=== PATIENT | male | born 1985 | race Caucasian/White ===

== ENCOUNTER 2016-09-12 22:53 | Emergency (ER) | payer OTHER ==
[~2016-09-12] VITALS: Ht 193 cm; Wt 102.3 kg
[~2016-09-12 22:53] MED LIST: DIAZ-165 PO; METH4PAK PO; OXYC1TAB3 PO
[2016-09-12 23:05] VITALS: TEMP 37; Ht 193 cm; Wt 102.3 kg
[2016-09-12] MEDS ORDERED: KETOROLAC TROMETHAMINE 30 MG/ML VIAL IV STA (23:26)
[2016-09-12] MEDS ORDERED: METHYLPREDNISOLONE 125 MG VIAL IV STA (23:26)
[2016-09-12] MEDS ORDERED: SODIUM CHLORIDE 0.9% 1000ML 1,000 ML IV ONE (23:30)
[2016-09-12] MEDS ORDERED: MoRPHine SULFATE 4 MG/ML 1 ML CARP\\VIAL IV ONE (23:30)
[2016-09-12] MEDS ORDERED: NAPR1TAB9 PO (23:33)
[2016-09-12 23:48] LABS: BASO % 0.1 %; BASO ABS # 0.01 K/uL (0-0.2); COMPLETE YES; EOS % 2.4 %; HEMATOCRIT 42.7 % (42-52); IG% 0.1 %; LYMPH % 35.8 %; MEAN CELL VOLUME 86.3 fL (80-100); MEAN CORPUSCULAR HEMOGLOBIN 31.1 pg (25-34); MEAN CORPUSCULAR HGB CONC 36.1 g/dl (32-36); MEAN PLATELET VOLUME 10.1 fL (7.4-10.4); MONO % 8.9 %; NEUT % 52.7 %; PLATELET COUNT 192 K/uL (130-400); RED BLOOD COUNT 4.95 M/uL (4.7-6.1); WHITE BLOOD COUNT 7.54 K/uL (4.8-10.8)
[2016-09-13 00:06] LABS: BLOOD UREA NITROGEN 16 mg/dl (7-18); BUN/CREATININE RATIO 14.1 (10-20); C-REACTIVE PROTEIN < 0.29 mg/dl (0-0.29); CALCIUM 9.1 mg/dl (8.5-10.1); CARBON DIOXIDE 26 mmol/L (21-32); CHLORIDE 108 mmol/L (98-107); GLUCOSE 103 mg/dl (70-99); POTASSIUM 3.4 mmol/L (3.5-5.1); SODIUM 146 mmol/L (136-145)
[2016-09-13 00:49] VITALS: BP 145/94; PULSE 76; O2SAT 96
[2016-09-13] MEDS ORDERED: HYDROmorphone INJ 1 MG/ML SYR IV STA (01:08)
[2016-09-13] MEDS ORDERED: OXYC1TAB3 PO (01:58)
[2016-09-13] MEDS ORDERED: CYCL10TA6 PO (01:58)
[2016-09-13] MEDS ORDERED: PRED50TA PO (01:58)
--- NOTE | 2016-09-13 06:38 | DIAGNOSTIC IMAGING REPORT ---
CT LUMBAR SPINE WITHOUT CT DOSE: 745.81 mGy.cm CLINICAL HISTORY: Low back pain TECHNIQUE: Axial images of the lumbar spine were obtained without IV contrast. Sagittal and coronal reconstructions were viewed. COMPARISON STUDY: Lumbar spine radiographs July 19, 2015. FINDINGS: For purposes of numbering on this exam, the L5-S1 disc space is assigned to axial image 322 of 393. Alignment of the lumbar spine is anatomic. Vertebral body heights are maintained. No acute fracture or suspicious lesion is noted. There is a Schmorl's node along the superior endplate of L5. Paravertebral soft tissues are unremarkable. The central canal and neural foramen are suboptimally assessed by CT. There is disc space narrowing with a disc bulge and moderate to large central disc protrusion at L4-L5 that measures 1.6 cm in craniocaudal extent. This results in moderate to severe central canal stenosis. There is mild disc bulge the L5-S1 level. There is moderate right neural foraminal narrowing at this level. IMPRESSION: 1. No acute lumbar spine fracture or subluxation. 2. Disc bulge with superimposed moderate to large central disc protrusion at L4-L5 that results in moderate to severe narrowing of the central canal. The central canal and neural foramen are suboptimally assessed by CT. 3. Suspected moderate right neural foraminal stenosis at L5-S1. Electronically signed by: Yefri Baca M.D. 09/13/2016 6:36 AM
--- NOTE | 2016-09-14 00:22 | EMERGENCY ROOM VISIT NOTE ---
History First contact with patient: 23:11 Chief Complaint: BACK PAIN Stated Complaint: SEVERE LOWER BACK PAIN, SLEEPLESSNESS History of Present Illness The patient is a 31 year old male who presents to the Emergency Room with complaints of severe and ongoing low back pain off and on for the past few years. The patient states that he exacerbated his back pain a week or 2 ago. He states that he does not have distinct injury or trauma. He was initially seen at this facility, where he was given pain medication and steroids. This medication did improve his symptoms initially, however his symptoms are now much worse than they were before. The patient has pain that radiates into his bilateral lower legs. No saddle paresthesias. No difficulty using the bathroom. The patient has not had fever or previous back surgery. He rates his discomfort a 9/10. Review of Systems More than 10 systems were reviewed and otherwise negative with the exception of history of present illness. Past Medical/Surgical History Medical Problems: (1) Allergy to cats (2) Back pain, lumbosacral Family History No pertinent family history Social History Smoking Status: Current Every Day Smoker Marital Status: in relationship Housing Status: lives with significant other Occupation Status: disabled Current/Historical Medications Scheduled Cyclobenzaprine Hcl (Flexeril), 10 MG PO TID Oxycodone Immediate Rel Tab (Roxicodone Ir), 1-2 TAB PO Q6 Prednisone (Prednisone), 50 MG PO DAILY Scheduled PRN Diazepam (Valium), 5-10 MG PO Q6H PRN for Muscle Spasms Naproxen (Aleve), 220 MG PO DIRECTED PRN for Pain Oxycodone Immediate Rel Tab (Roxicodone Ir), 1-2 TAB PO Q4H PRN for Severe Pain Allergies Coded Allergies: Cat Dander (Verified Allergy, Severe, SEVERE CONGESTION AND EYE SWELLING, 09/12/16) Physical Exam Vital Signs Date Time Temp Pulse Resp B/P Pulse Ox O2 Delivery O2 Flow Rate FiO2 09/13/16 00:49 76 20 145/94 96 Room Air 09/12/16 23:05 37.0 62 18 139/91 98 Room Air Pain Rating (0-10): 8.0 Physical Exam VITALS: Vitals are noted on the nurse's note and reviewed by myself. Vital signs stable. GENERAL: Well-developed, well-nourished, white male, who is in no acute distress and resting comfortably. Patient is cooperative with the examination. HEAD: Normocephalic atraumatic. HEART: Regular rate and rhythm without murmurs gallops or rubs. LUNGS: Clear to auscultation bilaterally without wheezes, rales or rhonchi. No retractions or accessory muscle use. ABDOMEN: Positive normal bowel sounds x 4. Soft, nontender, without masses or organomegaly. No guarding or rebound tenderness. MUSCULOSKELETAL: No muscle atrophy, erythema, or edema noted. Positive tenderness throughout the lower lumbar spine. Positive bilateral SI joint tenderness. Positive straight leg raise bilateral. No saddle paresthesias. Neurovascular status is intact distally. NEURO: Patient was alert and oriented to person place and time. CN II through XII grossly intact. Deep tendon reflexes 2+ throughout. No focal neurological deficits SKIN: The skin was without rashes, erythema, edema, or bruising. Capillary reflex less than 2 seconds. Medical Decision & Procedures ER Provider Diagnostic Interpretation: CT LUMBAR SPINE WITHOUT CT DOSE: 745.81 mGy.cm CLINICAL HISTORY: Low back pain TECHNIQUE: Axial images of the lumbar spine were obtained without IV contrast. Sagittal and coronal reconstructions were viewed. COMPARISON STUDY: Lumbar spine radiographs July 19, 2015. FINDINGS: For purposes of numbering on this exam, the L5-S1 disc space is assigned to axial image 322 of 393. Alignment of the lumbar spine is anatomic. Vertebral body heights are maintained. No acute fracture or suspicious lesion is noted. There is a Schmorl's node along the superior endplate of L5. Paravertebral soft tissues are unremarkable. The central canal and neural foramen are suboptimally assessed by CT. There is disc space narrowing with a disc bulge and moderate to large central disc protrusion at L4-L5 that measures 1.6 cm in craniocaudal extent. This results in moderate to severe central canal stenosis. There is mild disc bulge the L5-S1 level. There is moderate right neural foraminal narrowing at this level. IMPRESSION: 1. No acute lumbar spine fracture or subluxation. 2. Disc bulge with superimposed moderate to large central disc protrusion at L4-L5 that results in moderate to severe narrowing of the central canal. The central canal and neural foramen are suboptimally assessed by CT. 3. Suspected moderate right neural foraminal stenosis at L5-S1. Laboratory Results 09/12/16 23:36 Red Blood Count 4.95, Mean Corpuscular Volume 86.3, Mean Corpuscular Hemoglobin 31.1, Mean Corpuscular Hemoglobin Concent 36.1, Mean Platelet Volume 10.1, Neutrophils (%) (Auto) 52.7, Lymphocytes (%) (Auto) 35.8, Monocytes (%) (Auto) 8.9, Eosinophils (%) (Auto) 2.4, Basophils (%) (Auto) 0.1, Neutrophils # (Auto) 3.97, Lymphocytes # (Auto) 2.70, Monocytes # (Auto) 0.67, Eosinophils # (Auto) 0.18, Basophils # (Auto) 0.01 09/12/16 23:36 Test 09/12/16 23:36 White Blood Count 7.54 K/uL (4.8-10.8) Red Blood Count 4.95 M/uL (4.7-6.1) Hemoglobin 15.4 g/dL (14.0-18.0) Hematocrit 42.7 % (42-52) Mean Corpuscular Volume 86.3 fL (80-100) Mean Corpuscular Hemoglobin 31.1 pg (25-34) Mean Corpuscular Hemoglobin Concent 36.1 g/dl (32-36) Platelet Count 192 K/uL (130-400) Mean Platelet Volume 10.1 fL (7.4-10.4) Neutrophils (%) (Auto) 52.7 % Lymphocytes (%) (Auto) 35.8 % Monocytes (%) (Auto) 8.9 % Eosinophils (%) (Auto) 2.4 % Basophils (%) (Auto) 0.1 % Neutrophils # (Auto) 3.97 K/uL (1.4-6.5) Lymphocytes # (Auto) 2.70 K/uL (1.2-3.4) Monocytes # (Auto) 0.67 K/uL (0.11-0.59) Eosinophils # (Auto) 0.18 K/uL (0-0.5) Basophils # (Auto) 0.01 K/uL (0-0.2) RDW Standard Deviation 40.6 fL (36.4-46.3) RDW Coefficient of Variation 12.7 % (11.5-14.5) Immature Granulocyte % (Auto) 0.1 % Immature Granulocyte # (Auto) 0.01 K/uL (0.00-0.02) Erythrocyte Sedimentation Rate 4 mm/hr (0-14) Anion Gap 12.0 mmol/L (3-11) Est Creatinine Clear Calc Drug Dose 118.3 ml/min Estimated GFR () 102.4 Estimated GFR (Non- 88.4 BUN/Creatinine Ratio 14.1 (10-20) Calcium Level 9.1 mg/dl (8.5-10.1) C-Reactive Protein < 0.29 mg/dl (0-0.29) Medications Administered Medications (Trade) Dose Ordered Sig/Tiffanie Route Start Time Stop Time Status Last Admin Dose Admin Sodium Chloride (Nss 1000ml) 1,000 ml @ 999 mls/hr Q1H1M ONCE IV 09/12/16 23:30 09/13/16 00:30 DC 09/12/16 23:47 999 MLS/HR Ketorolac Tromethamine (Toradol Inj) 30 mg NOW STAT IV 09/12/16 23:26 09/12/16 23:31 DC 09/12/16 23:46 30 MG Methylprednisolone Sodium Succinate (Solu-Medrol IV) 125 mg NOW STAT IV 09/12/16 23:26 09/12/16 23:31 DC 09/12/16 23:46 125 MG Morphine Sulfate (MoRPHine SULFATE INJ) 4 mg NOW ONCE IV 09/12/16 23:30 09/12/16 23:31 DC 09/12/16 23:47 4 MG Hydromorphone HCl (Dilaudid Inj) 1 mg NOW STAT IV 09/13/16 01:08 09/13/16 01:09 DC 09/13/16 01:15 1 MG ED Course Physical exam and history were performed. Nursing notes and EMR were reviewed. Patient appears to have low back pain chronically. His symptoms have been acutely exacerbated the past few weeks. He is without saddle paresthesias and I do not suspect cauda equina. Patient is previously at this facility and has not had imaging in about one year. IV access was established and labs were obtained. The patient was hydrated and medicated as above. I did elect to perform CT scan of his lumbar spine. The patient's blood work does not show a significantly elevated white blood cell count, anemia, bandemia, or gross electrolyte imbalance. Sedimentation rate and CRP are both negative. CT scan of the back does show multiple findings that likely are the cause of his symptoms. I discussed options of care with the patient, including consultation orthospine and admission to the hospital. The patient declined any further intervention as he felt significantly better after medication. I explained to the patient is symptoms would likely continue if not worsened without appropriate care. He voiced understanding of this, and again indicated that he wished to go home. I will give him a course of oxycodone, prednisone, and Flexeril. He will be given information to see orthospine. I highly recommend that he contact them first thing in the morning to arrange the appropriate follow-up. He was otherwise invited back to the ER with any new, worsening, or concerning symptoms. The chart was completed utilizing [employer] Speech Voice Recognition Software. Grammatical errors, random word insertions, pronoun errors, and incomplete sentences are an occasional consequence of this system due to software limitations, ambient noise, and hardware issues. Any formal questions or concerns about the content, text, or information contained within the body of this dictation should be directly addressed to the provider for clarification. . Medical Decision Differential diagnosis: Etiologies such as musculoskeletal, disc herniation, fracture, aortic disease, metastatic disease, cord compression, discitis, infection, renal colic, gastrointestinal, acute exacerbation of chronic back pain, sciatica, cauda equina, as well as others were entertained. Impression Primary Impression: Low back pain Additional Impression: Extrusion of intervertebral disc Departure Information Dispostion Home / Self-Care Condition FAIR Prescriptions Cyclobenzaprine Hcl (FLEXERIL) 10 Mg Tab 10 MG PO TID for 5 Days, #15 TAB Prov: Nitesh Talley PA-C 09/13/16 Prednisone (Prednisone) 50 Mg Tab 50 MG PO DAILY for 4 Days, #4 TAB Prov: Nitesh Talley PA-C 09/13/16 Oxycodone Immediate Rel Tab (ROXICODONE IR) 5 Mg Tab 1-2 TAB PO Q6, #24 TAB Prov: Nitesh Talley PA-C 09/13/16 Referrals Brooks Thapa, DO Forms HOME CARE DOCUMENTATION FORM, IMPORTANT VISIT INFORMATION Patient Instructions A Signature Page, My [facility] Additional Instructions You were seen and evaluated today on an emergency basis only. This is not a substitute for, or an effort to provide, complete comprehensive medical care. It is not possible to recognize and treat all injuries or illnesses in a single emergency department visit. For this reason it is recommended that you followup with Dr Thapa's office first thing in the morning to arrange appropriate follow-up. For baseline pain relief you may alternate ibuprofen and acetaminophen every 4 hours for pain control. Take 600 mg ibuprofen (Advil) and then 4 hours later take 1000 mg acetaminophen (Tylenol). Do not take more than 3000 mg acetaminophen in a single day. Oxycodone (OxyIR) 5mg: Take ONE or TWO pills every SIX hours for breakthrough pain. Avoid alcohol, operating machinery or dangerous equipment, working on ladders or roofs, DRIVING, or situations where being under the influence may be dangerous. It is recommended to use an [id number] stool softener such as Colace, 100mg twice daily while taking this medication to avoid constipation. Take prednisone as prescribed. Flexeril 1 tablet up to 3 times a day as needed for muscle spasms. No driving, working, or alcohol use with Flexeril. You are welcome to return to the emergency department anytime with new, worsening, or concerning symptoms.
[2016-09-18] MEDS ORDERED: OXYC1TAB3 PO ×2 (13:37→13:39)
[2016-09-27] MEDS ORDERED: ACET-1311 PO (09:06)
[2016-09-27] MEDS ORDERED: HYDR2TAB48 PO (09:06)
[2017-05-29] MEDS ORDERED: ZOLP10TA PO (08:40)
[2017-05-29] MEDS ORDERED: MIRT15TA2 PO (08:40)
[2017-05-29] MEDS ORDERED: HYDROXYZINE PO (08:40)
[2017-05-29] MEDS ORDERED: HYDR-5688 PO (08:40)
== END 2016-09-13 02:07 | disposition home or self-care (01) ==
LOC: C.EDB 22:54
DX: M54.5 Low back pain (principal); M51.26 Other intervertebral disc displacement, lumbar region; F17.200 Nicotine dependence, unspecified, uncomplicated

== ENCOUNTER → 2016-09-21 | Outpatient (CLI) | payer OTHER ==
[~2016-09-21] MED LIST changes: +ACET-1311 PO; -DIAZ-165 PO; +DIPH25CA65 PO; +DOXY25TA7 PO; +HYDR-5688 PO; +HYDR2TAB48 PO; +HYDROXYZINE PO; -METH4PAK PO; +MIRT15TA2 PO; +TRAZ50TA35 PO; +ZOLP10TA PO
--- NOTE | 2016-09-21 08:00 | DIAGNOSTIC IMAGING REPORT ---
BONY ORBITS 3 VIEWS CLINICAL HISTORY: MRI clearance. FINDINGS: 3 views of the bony orbits are obtained. No prior studies are available for comparison at the time of dictation. There is no radiodense/metallic foreign body seen in the regional bony orbits. The bony orbits are intact as visualized. The imaged paranasal sinuses appear clear. The mastoid air cells appear well-pneumatized. The visualized calvarium appears intact. IMPRESSION: There is no radiodense/metallic foreign body seen in the region of the bony orbits. Electronically signed by: Dimitri Dalton M.D. 09/21/2016 7:58 AM Dictated Date/Time: 09/21/2016 7:57 AM
--- NOTE | 2016-09-21 09:21 | DIAGNOSTIC IMAGING REPORT ---
MRI OF THE LUMBAR SPINE WITHOUT IV CONTRAST CLINICAL HISTORY: Disc herniation. Low back pain. COMPARISON STUDY: CT scan of lumbar spine dated 09/13/2016. TECHNIQUE: MRI of the lumbar spine is performed utilizing various T1 and T2-weighted sequences in the axial and sagittal planes. IV contrast was not administered for this examination. FINDINGS: Lumbar spine: Vertebral body height and alignment are maintained throughout the lumbar spine. A Schmorl's node is seen in the superior endplate of L5. Endplate edema is present at L4-L5. The spinous and transverse processes are intact as visualized. There is no evidence of spondylolysis. No destructive bony lesion is seen. Intervertebral discs: There is degenerative disc desiccation and loss of height at L4-L5 and L5-S1. The remaining discs are normal in height and signal intensity. Paraspinal cord: The visualized spinal cord is normal in morphology and signal intensity. The conus medullaris terminates at the level of L1. The nerve roots of the cauda equina are normal in morphology. These appear tethered at the L4-L5 level. L1-L2: Unremarkable. L2-L3: Unremarkable. L3-L4: Unremarkable. L4-L5: There is a large disc herniation with annular fissure, slightly eccentric to the right. This causes severe central canal stenosis at this level with a minimum AP diameter of 4.5 mm. This tethers the nerve roots of the cauda equina at this level and impinges on the transiting nerve roots. There is mild bilateral subarticular stenosis. The neural foramina are patent at this level. L5-S1: There is minimal disc bulge eccentric to the right with annular fissure. The central canal is patent. There is right-sided subarticular stenosis with possible impingement on the exiting right L5 nerve root. Minimal facet arthropathy at this level is of no consequence. Sacrum: The visualized sacrum is normal in morphology and signal intensity. Soft tissues: The paraspinous soft tissues are normal in appearance. The partially imaged retroperitoneal structures are grossly normal but incompletely assessed. IMPRESSION: 1. There is a large disc herniation at L4-L5. This causes severe central canal stenosis and tethers the cauda equina. 2. There is a tiny disc bulge at L5-S1 eccentric to the right. This may impinge on the exiting right L5 nerve root. See above discussion for detailed level by level analysis. 3. There is associated endplate edema at L4-L5. Dictated: 09/21/2016 8:54 AM Transcribed: 09/21/2016 9:20 AM DALE_Delio Electronically signed by: Dimitri Dalton M.D. 09/21/2016 9:37 AM Dictated Date/Time: 09/21/2016 8:54 AM
== END | disposition home or self-care (01) ==
LOC: C.MRI 07:26
PROVIDERS: ATTEND Orthopaedic Surgery Orthopaedic Surgery of the Spine
DX: M51.26 Other intervertebral disc displacement, lumbar region (principal)

== ENCOUNTER → 2016-09-26 | Outpatient (CLI) | payer OTHER ==
[2016-09-26 17:15] LABS: BASO % 0.2 %; BASO ABS # 0.02 K/uL (0-0.2); COMPLETE YES; HEMATOCRIT 42.3 % (42-52); IG% 0.2 %; LYMPH % 21.1 %; LYMPH ABS # 1.92 K/uL (1.2-3.4); MEAN CORPUSCULAR HEMOGLOBIN 30.9 pg (25-34); MEAN CORPUSCULAR HGB CONC 35.9 g/dl (32-36); MEAN PLATELET VOLUME 10.7 fL (7.4-10.4); MONO % 6.8 %; NEUT % 70.7 %; PLATELET COUNT 205 K/uL (130-400); RED BLOOD COUNT 4.92 M/uL (4.7-6.1)
== END | disposition home or self-care (01) ==
LOC: C.LABBC 14:03
PROVIDERS: ATTEND Orthopaedic Surgery Orthopaedic Surgery of the Spine
DX: Z01.818 Encounter for other preprocedural examination (principal)

== ENCOUNTER 2016-09-27 22:46 | Emergency (ER) | payer OTHER ==
[~2016-09-27] VITALS: Ht 193 cm; Wt 98.7 kg
[~2016-09-27 22:46] MED LIST changes: -DIPH25CA65 PO; -DOXY25TA7 PO; -HYDR-5688 PO; -HYDROXYZINE PO; -MIRT15TA2 PO; -TRAZ50TA35 PO; -ZOLP10TA PO
[2016-09-27 22:53] VITALS: TEMP 36.5; Ht 193 cm; Wt 98.7 kg
[2016-09-27] MEDS ORDERED: SODIUM CHLORIDE 0.9% 1000ML 2,000 ML IV STA (23:11)
[2016-09-27] MEDS ORDERED: ONDANSETRON INJ 2 MG/ML 2 ML VIAL IV STA (23:11)
[2016-09-27] MEDS ORDERED: MoRPHine SULFATE 10 MG/ML CARP/VIAL IV STA (23:17)
[2016-09-27 23:34] LABS: BASO % 0.2 %; BASO ABS # 0.02 K/uL (0-0.2); COMPLETE YES; EOS % 0.5 %; HEMATOCRIT 47.5 % (42-52); IG% 0.2 %; LYMPH % 14.7 %; MEAN CELL VOLUME 85.7 fL (80-100); MEAN CORPUSCULAR HEMOGLOBIN 31.2 pg (25-34); MEAN CORPUSCULAR HGB CONC 36.4 g/dl (32-36); MEAN PLATELET VOLUME 10.4 fL (7.4-10.4); MONO % 7.9 %; NEUT % 76.5 %; PLATELET COUNT 249 K/uL (130-400); RED BLOOD COUNT 5.54 M/uL (4.7-6.1); WHITE BLOOD COUNT 12.89 K/uL (4.8-10.8)
[2016-09-28] LABS: ALT/SGPT 45 U/L (12-78); AST/SGOT 20 U/L (15-37); BLOOD UREA NITROGEN 22 mg/dl (7-18); BUN/CREATININE RATIO 16.6 (10-20); CALCIUM 10.3 mg/dl (8.5-10.1); CARBON DIOXIDE 23 mmol/L (21-32); CHLORIDE 103 mmol/L (98-107); GLUCOSE 114 mg/dl (70-99); POTASSIUM 3.2 mmol/L (3.5-5.1); SODIUM 141 mmol/L (136-145)
[2016-09-28 00:05] LABS: ALKALINE PHOSPHATASE 79 U/L (45-117)
[2016-09-28] MEDS ORDERED: SODIUM CHLORIDE 0.9% 500ML 500 ML IV STA (00:19)
[2016-09-28 00:46] LABS: URINE APPEARANCE CLEAR (CLEAR); URINE BILIRUBIN NEG (NEG); URINE COLOR DK YELLOW; URINE NITRITE NEG (NEG); URINE PH 7.5 (4.5-7.5); URINE SPECIFIC GRAVITY 1.039 (1.000-1.030); UROBILINOGEN NEG (NEG); ZZUR CULT IF INDIC CLEAN CATCH NO
[2016-09-28 01:01] LABS: MANUAL MICROSCOPIC REQUIRED? NO; REVIEW REQ? NO; SULFASALICYLIC ACID NEG (NEG)
[2016-09-28] MEDS ORDERED: POTASSIUM CHLORIDE 10 MEQ TABCR PO STA (01:06)
[2016-09-28 01:08] VITALS: BP 128/76; PULSE 81; O2SAT 99
[2016-09-28] MEDS ORDERED: ONDANSETRON HOME PACK 4MG OD TAB PO ONE (01:15)
--- NOTE | 2016-09-28 01:42 | EMERGENCY ROOM VISIT NOTE ---
History Report prepared by Mindy: [place] Matt Under the Supervision of: Dr. Santos Sandy D.O. First contact with patient: 23:03 Chief Complaint: DEHYDRATION Stated Complaint: ANXIETY, DEHYDRATION, SWEATING, NAUSEA, Nursing Triage Summary: pt reports he is scheduled for surgery in the morning. reports vomiting since last night. Reports that he has been seen her 2x recently and had to get saline. c/o back pain History of Present Illness The patient is a 31 year old male who presents to the Emergency Room with complaints of constant dehydration beginning last night. The patient complains of anxiety, sweating, nausea, leg pain on the back side, and vomiting. He states that he has had back pain for the last year and slipped on ice 2 weeks ago and caught himself. He reports that this aggravated the pervious injury and he was seen here 2 days ago and had a CT scan done. The patient states that he had an appointment with orthopedics and had an MRI and was scheduled for surgery to have a disc removed tomorrow morning at 7am. He notes that he has anxiety and when he found out about his surgery he began to have an anxiety attack. Since last night the patient states that he has has his usual anxiety symptoms including shortness of breath, sweating, and heart racing. He also notes that he has not been able to keep any food or water down and feels like he is dehydrated. The patient is also concerned that he has not been able to keep his hydromorphone down. He denies any abdominal pain, urinary symptoms, fever, bowel movement changes, numbness in the groin, numbness in the legs, and anyone around him being sick. He notes that his last bowel movement was yesterday and he still has his gallbladder and appendix. Source of History: patient Onset: last night Position: other (global) Timing: constant Associated Symptoms: + SOB, + nausea, + vomiting, No abdominal pain, No fevers, No numbness, No urinary symptoms Note: The patient complains of anxiety, sweating, leg pain on the back side, sweating and heart racing. He denies any bowel movement changes and anyone around him being sick. Review of Systems See HPI for pertinent positives & negatives. A total of 10 systems reviewed and were otherwise negative. Past Medical & Surgical Medical Problems: (1) Allergy to cats (2) Back pain, lumbosacral Family History No pertinent family history Social History Smoking Status: Current Every Day Smoker Alcohol Use: occasionally Marital Status: in relationship Housing Status: lives with significant other Occupation Status: disabled Current/Historical Medications Scheduled Hydromorphone Hcl (Dilaudid), 2 MG PO QID Scheduled PRN Acetaminophen (Tylenol), 650 MG PO QID PRN for Pain Allergies Coded Allergies: Cat Dander (Verified Allergy, Severe, SEVERE CONGESTION AND EYE SWELLING, 09/27/16) NO KNOWN DRUG ALLERGIES (Verified Allergy, Mild, ., 09/27/16) Physical Exam Vital Signs Date Time Temp Pulse Resp B/P Pulse Ox O2 Delivery O2 Flow Rate FiO2 09/28/16 01:08 81 18 128/76 99 Room Air 09/28/16 00:30 56 18 132/86 100 Room Air 09/27/16 22:53 36.5 68 20 133/91 98 Room Air Physical Exam GENERAL: anxious, sitting up in bed, disheveled, non-toxic EYE EXAM: normal conjunctiva OROPHARYNX: no exudate, no erythema, lips, buccal mucosa, and tongue normal and mucous membranes are moist NECK: supple, no nuchal rigidity, no adenopathy, non-tender LUNGS: Clear to auscultation. Normal chest wall mechanics HEART: no murmurs, S1 normal and S2 normal ABDOMEN: abdomen soft, non-tender, normo-active bowel sounds, no masses, no rebound or guarding. BACK: Back is symmetrical on inspection and there is no deformity, mild midline lower tenderness. SKIN: no rashes and no bruising UPPER EXTREMITIES: upper extremities are grossly normal. LOWER EXTREMITIES: No pitting edema. Flexion extension hip, knee, ankle and EHL 5/5 bilaterally, gross sensations intact. NEURO EXAM: Normal sensorium, cranial nerves II-XII grossly intact, normal speech, no gross weakness of arms, no gross weakness of legs. Medical Decision & Procedures ER Provider Diagnostic Interpretation: Xray results per my interpretation. Abdomen X-Ray: Poor view of the abdomen, mild LUQ gas prominence, no air fluid levels. 2-View of Chest: No focal infiltrate or pneumothorax: Laboratory Results 09/27/16 23:20 Red Blood Count 5.54, Mean Corpuscular Volume 85.7, Mean Corpuscular Hemoglobin 31.2, Mean Corpuscular Hemoglobin Concent 36.4, Mean Platelet Volume 10.4, Neutrophils (%) (Auto) 76.5, Lymphocytes (%) (Auto) 14.7, Monocytes (%) (Auto) 7.9, Eosinophils (%) (Auto) 0.5, Basophils (%) (Auto) 0.2, Neutrophils # (Auto) 9.85, Lymphocytes # (Auto) 1.90, Monocytes # (Auto) 1.02, Eosinophils # (Auto) 0.07, Basophils # (Auto) 0.02 09/27/16 23:20 Test 09/27/16 23:20 09/28/16 00:25 White Blood Count 12.89 K/uL (4.8-10.8) Red Blood Count 5.54 M/uL (4.7-6.1) Hemoglobin 17.3 g/dL (14.0-18.0) Hematocrit 47.5 % (42-52) Mean Corpuscular Volume 85.7 fL (80-100) Mean Corpuscular Hemoglobin 31.2 pg (25-34) Mean Corpuscular Hemoglobin Concent 36.4 g/dl (32-36) Platelet Count 249 K/uL (130-400) Mean Platelet Volume 10.4 fL (7.4-10.4) Neutrophils (%) (Auto) 76.5 % Lymphocytes (%) (Auto) 14.7 % Monocytes (%) (Auto) 7.9 % Eosinophils (%) (Auto) 0.5 % Basophils (%) (Auto) 0.2 % Neutrophils # (Auto) 9.85 K/uL (1.4-6.5) Lymphocytes # (Auto) 1.90 K/uL (1.2-3.4) Monocytes # (Auto) 1.02 K/uL (0.11-0.59) Eosinophils # (Auto) 0.07 K/uL (0-0.5) Basophils # (Auto) 0.02 K/uL (0-0.2) RDW Standard Deviation 39.6 fL (36.4-46.3) RDW Coefficient of Variation 12.5 % (11.5-14.5) Immature Granulocyte % (Auto) 0.2 % Immature Granulocyte # (Auto) 0.03 K/uL (0.00-0.02) Anion Gap 15.0 mmol/L (3-11) Est Creatinine Clear Calc Drug Dose 100.1 ml/min Estimated GFR () 83.7 Estimated GFR (Non- 72.2 BUN/Creatinine Ratio 16.6 (10-20) Calcium Level 10.3 mg/dl (8.5-10.1) Total Bilirubin 1.1 mg/dl (0.2-1) Direct Bilirubin 0.2 mg/dl (0-0.2) Aspartate Amino Transf (AST/SGOT) 20 U/L (15-37) Alanine Aminotransferase (ALT/SGPT) 45 U/L (12-78) Alkaline Phosphatase 79 U/L (45-117) Troponin I < 0.015 ng/ml (0-0.045) Total Protein 9.2 gm/dl (6.4-8.2) Albumin 5.3 gm/dl (3.4-5.0) Lipase 134 U/L (73-393) Urine Color DK YELLOW Urine Appearance CLEAR (CLEAR) Urine pH 7.5 (4.5-7.5) Urine Specific [place] 1.039 (1.000-1.030) Urine Protein NEG (NEG) Urine Glucose (UA) NEG (NEG) Urine Ketones 4+ (NEG) Urine Occult Blood NEG (NEG) Urine Nitrite NEG (NEG) Urine Bilirubin NEG (NEG) Urine Urobilinogen NEG (NEG) Urine Leukocyte Esterase TRACE (NEG) Urine WBC (Auto) 1-5 /hpf (0-5) Urine RBC (Auto) 0-4 /hpf (0-4) Urine Hyaline Casts (Auto) 1-5 /lpf (0-5) Urine Epithelial Cells (Auto) 10-20 /lpf (0-5) Urine Bacteria (Auto) NEG (NEG) Laboratory results per my review. Medications Administered Medications (Trade) Dose Ordered Sig/Tiffanie Route Start Time Stop Time Status Last Admin Dose Admin Sodium Chloride (Nss 1000ml) 2,000 ml @ 999 mls/hr Q2H1M STAT IV 09/27/16 23:11 09/28/16 01:11 DC 09/27/16 23:31 999 MLS/HR Ondansetron HCl (Zofran Inj) 4 mg NOW STAT IV 09/27/16 23:11 09/27/16 23:13 DC 09/27/16 23:32 4 MG Morphine Sulfate 6 mg 6 mg NOW STAT IV 09/27/16 23:17 1/18/17 23:18 DC 09/27/16 23:31 6 MG Sodium Chloride (Nss 500ml) 500 ml @ 999 mls/hr Q31M STAT IV 09/28/16 00:19 09/28/16 00:49 DC 09/28/16 00:28 999 MLS/HR Ondansetron HCl (ZOFRAN ODT 4MG Home Pack) 1 homepack UD ONCE PO 09/28/16 01:15 09/28/16 01:16 DC 09/28/16 01:14 1 HOMEPACK ECG Indication: other (heart racing) Rate (beats per minute): 61 Rhythm: sinus rhythm Findings: no ectopy, other (normal axis) ED Course ED COURSE: Vital signs were reviewed and normal The patients medical record was reviewed The above diagnostic studies were performed and reviewed. ED treatments and interventions as stated above. 2303: The patient was evaluated in room B12B. A complete history and physical examination was performed. 2311: Zofran Inj 4mg IV, Sodium Chloride 2000 ml @ 999 mls/hr IV. 2317: Morphine Sulfate 6mg IV. 0017: I reevaluated the patient and he is feeling better. 0019: Sodium Chloride 500 ml @ 999 mls/hr IV. 0115: Ondansetron HCl 1 homepack PO. 0117: Upon reevaluation, the patient is hemodynamically stable.I discussed my findings with the patient and he understands and agrees with the treatment plan. Based on the patients age, coexisting illnesses, exam and lab findings the decision to treat as an outpatient was made. The patient remained stable while under my care. The patient appeared well at the time of discharge. Medical Decision Differential diagnosis: Etiologies such as gastroenteritis, food borne illness, infections, appendicitis , diverticulitis, inflammatory bowel disease, obstruction, GI bleed, biliary pathology, as well as others were entertained. Patient is a 31-year-old male who presents the ER for persistent vomiting. He notes that he saw an orthopedic surgeon 3 days ago and is scheduled for the OR later this morning. He notes that since then he has been very nauseous. He notes he does suffer from anxiety and when he goes very anxious he vomits uncontrollably. Upon presentation he is completely benign exam. He has no abdominal pain. He does feel his heart race a little short of breath but notes this is normal for his anxiety. EKG was unremarkable. Labs including CBC, BMP , LFTs and bilirubin were unremarkable as well. UA did show pus for ketones supporting his vomiting. Potassium slightly low 3.2. He is scheduled for surgery and consequently I did not give him any oral potassium as this may prevent/delay surgery. Obstruction series was unremarkable. Chest x-ray was unremarkable as well. Patient was discharged well-appearing without any vomiting to follow-up with his surgeon at 7 AM. Discussed with Pt concerning signs and symptoms to watch out for. Pt was instructed to follow up with their PCP and discussed with the patient their option to return to the ED at anytime for persistent or worsening symptoms. The appropriate anticipatory guidance and out-patient management, including indications for return to the emergency department, were explained at length to the patient and understood. Impression Primary Impression: Vomiting Additional Impressions: Anxiety Hypokalemia Scribe Attestation The scribe's documentation has been prepared under my direction and personally reviewed by me in its entirety. I confirm that the note above accurately reflects all work, treatment, procedures, and medical decision making performed by me. Departure Information Dispostion Home / Self-Care Referrals Debbie Springer (PCP) Forms HOME CARE DOCUMENTATION FORM, IMPORTANT VISIT INFORMATION, WORK / SCHOOL INSTRUCTIONS Patient Instructions [facility], Vomiting - [facility] Additional Instructions Please follow up with your primary care doctor with in the next 24 hours. Any worsening of your symptoms, please return to the ED immediately. This includes any worsening abdominal pain, persistent nausea vomiting, bloody vomit, fevers greater than 100.4, or any other concerning signs or symptoms from your standpoint. Problem Qualifiers Primary Impression: Vomiting Vomiting type: unspecified Vomiting Intractability: non-intractable Nausea presence: with nausea Qualified Codes: R11.2 - Nausea with vomiting, unspecified
--- NOTE | 2016-09-28 07:09 | DIAGNOSTIC IMAGING REPORT ---
PA CHEST WITH ABDOMINAL SERIES CLINICAL HISTORY: Vomiting. FINDINGS: 2 PA chest radiographs are obtained. No prior studies are available for comparison at the time of dictation. The cardiomediastinal silhouette is unremarkable. The lungs and pleural spaces are clear. No pneumothorax is seen. The bony thorax is grossly intact. Supine and erect abdominal radiographs are correlated with lumbar spine x-rays dated 07/19/2015. There is a nonobstructed abdominal bowel gas pattern. No evidence of intraperitoneal free air is seen. There is mild colonic fecal retention. No abnormal abdominal calcifications are seen. The lumbosacral spine and bony pelvis appear intact. Bone islands are incidentally noted the pubic ring bilaterally. IMPRESSION: 1. No active disease in the chest. 2. Nonobstructed abdominal bowel gas pattern. Electronically signed by: Dimitri Dalton M.D. 09/28/2016 7:07 AM Dictated Date/Time: 09/28/2016 7:05 AM
[2017-05-29] MEDS ORDERED: ZOLP10TA PO (08:40)
[2017-05-29] MEDS ORDERED: MIRT15TA2 PO (08:40)
[2017-05-29] MEDS ORDERED: HYDROXYZINE PO (08:40)
[2017-05-29] MEDS ORDERED: HYDR-5688 PO (08:40)
== END 2016-09-28 01:15 | disposition home or self-care (01) ==
LOC: C.EDB 22:47
DX: R11.2 Nausea with vomiting, unspecified (principal); F41.9 Anxiety disorder, unspecified; E87.6 Hypokalemia; M54.5 Low back pain

== ENCOUNTER 2016-09-28 07:46 | Observation (INO) | payer OTHER ==
[2016-09-27 09:06] VITALS: BMI 28.0
--- NOTE | 2016-09-27 12:24 | HISTORY & PHYSICAL EXAMINATION ---
DATE OF ADMISSION: 09/26/2016 CHIEF COMPLAINT: He presents with low back pain, left leg numbness, tingling and weakness. HISTORY OF PRESENT ILLNESS: Jeremy is a 31-year-old male, complains of low back pain, severe pain radiculopathy down his left leg. He has made 3 different visits to the Emergency Room over here in the last 6 weeks. He states that he is worsening over time. Nothing improves his pain. He states that if he is in a position for too long he has increasing issues. Standing does not even seem to help. He has had LEI injections, physical therapy, ER visits, methylprednisolone and he is still failing. No bowel or bladder incontinence used were noted. MEDICAL HISTORY: Includes depression. PRIOR SURGICAL HISTORY: None. CURRENT MEDICATIONS: Includes ibuprofen. MEDICAL HISTORY: Positive for breast cancer. Negative for heart disease, stroke, diabetes, blood clots, DVTs, PEs. SOCIAL HISTORY: He is single, rarely drinks. Smokes approximately a half a pack of cigarettes a day for the past 10 years. Little activity. REVIEW OF SYSTEMS: MUSCULOSKELETAL: Positive for stiffness, weakness and muscle pain. PHYSICAL EXAMINATION: CONSTITUTIONAL: He is in distress here in the office today. He is 6 foot 4, 225 pounds. CARDIOVASCULAR: Brisk capillary refill to extremities. RESPIRATORY: Equal and bilateral breath sounds. GASTROINTESTINAL: Abdomen is soft, nontender to palpation and percussion. No organomegaly. INTEGUMENTARY: No skin rashes or lesions, ecchymosis or swelling. MUSCULOSKELETAL: He walks with a visible limp. He is in a fair amount of distress. He does have 4/5 weakness with dorsiflexion and plantarflexion in his left foot compared to his right. He has got weakened quadricep on the left side, as compared to the right as well. No cauda equina was noted. He does have appropriate reflexes bilateral lower extremities. MRI does show that there is a very large disc herniation at the L4-5 lumbar level. This causes severe central canal stenosis and tethers the cauda equina. ASSESSMENT AND DIAGNOSES: A very large disc herniation at the L4-5 level impinging on the central canal and left neural foramen. PLAN: At this time, we are going to preop him for surgery and tentatively scheduled for the 28 of September. We did discuss the procedure with him. The risks and benefits involved, as well as expectations and outcomes. He is in total agreement. We did state it will be a 1 level discectomy on the left side to remove that disc. We did give him a back brace for support for postop, as well as pain medication. We will follow him up in 10-14 days postop for suture removal and evaluation. I expect him to be in the inpatient or ob status for approximately 1 day or 1-1/2 days until we can discharged him.
[2016-09-27 23:15] VITALS: BP 139/74; PULSE 74; TEMP 37.1; O2SAT 98
[2016-09-28] VITALS (7 sets, daily range): BP systolic 124–156; BP diastolic 75–89; PULSE 69–76; TEMP 36.9–37.1; O2SAT 97–100; Ht 193 cm; Wt 104.5 kg
[~2016-09-28] VITALS: Ht 193 cm; Wt 104.5 kg
[~2016-09-28 07:46] MED LIST changes: +ATROPINE SULFATE 0.1 MG/ML 5ML SYR IV PRN; +CEFAZOLIN 2000 MG/60 ML D5W 60 ML IV SCH; +EpHEDrine SULFATE INJ 50 MG/ML AMP IV PRN; +LACTATED RINGER'S 1000ML 1,000 ML IV SCH; +NSS 1000ML IV SCH; +ONDANSETRON INJ 2 MG/ML 2 ML VIAL IV PRN; -OXYC1TAB3 PO
[2016-09-28] MEDS ORDERED: ROCURONIUM BROMIDE 10 MG/ML 5 ML VIAL ONE (08:43)
[2016-09-28] MEDS ORDERED: FENTANYL CITRATE INJ 50 MCG/1 ML 2 ML VIAL ONE ×2 (08:43→11:33)
[2016-09-28] MEDS ORDERED: DEXAMETHASONE SOD INJ 4 MG/ML VIAL ONE (08:43)
[2016-09-28] MEDS ORDERED: MIDAZOLAM HCL 1 MG/ML 2ML VIAL ONE (08:43)
[2016-09-28] MEDS ORDERED: ONDANSETRON INJ 2 MG/ML 2 ML VIAL ONE (08:43)
[2016-09-28] MEDS ORDERED: LIDOCAINE HCL 2% 2 ML VIAL (20MG/ML) ONE (08:43)
[2016-09-28] MEDS ORDERED: PROPOFOL IV EMULSION 10 MG/ML 20 ML VIAL IV ONE ×2 (08:43→11:02)
--- NOTE | 2016-09-28 10:13 | History & Physical Bridge Note ---
H&P Re-Evaluation Bridge Note: I have examined the patient, reviewed the History & Physical and in the interval since the performance of the History & Physical I have noted the following changes of clinical significance: No changes noted
[2016-09-28] MEDS ORDERED: SUCCINYLCHOLINE CHLORIDE 20 MG/ML 10 ML VIAL IV ONE (10:34)
[2016-09-28] MEDS ORDERED: ALBUTEROL HFA INHALER 8.5 GM INH ONE (10:35)
[2016-09-28] MEDS ORDERED: HYDROmorphone INJ 2 MG/ML SYR/VIAL ONE (10:36)
[2016-09-28] MEDS ORDERED: KETAMINE HCL INJ 50 MG/ML 10 ML VIAL ONE (10:43)
[2016-09-28] MEDS ORDERED: GLYCOPYRROLATE INJ 0.2 MG/ML VIAL ONE ×2 (11:22→11:24)
[2016-09-28] MEDS ORDERED: NEOSTIGMINE METHYLSULFATE 5 MG/5 ML SYR ONE (11:22)
[2016-09-28] MEDS ORDERED: BACITRACIN 50000 UNIT VIAL IR ONE (11:34)
[2016-09-28] MEDS ORDERED: THROMBIN FOR SOLN 20000 UNIT KIT TOP ONE (11:34)
[2016-09-28] MEDS ORDERED: GELATIN SPONGE SZ 100 TOP ONE (11:34)
[2016-09-28] MEDS ORDERED: BUPIVACAINE/EPINEPHRINE 0.5% MPF 1:200,000 30 ML VIAL INJ ONE (11:34)
[2016-09-28] MEDS ORDERED: VANCOMYCIN HCL 1000MG/20ML VIAL TOP ONE (11:34)
--- NOTE | 2016-09-28 11:51 | [facility] Post Operative Brief Note ---
Immediate Operative Summary Operative Date Sep 28, 2016. Pre-Operative Diagnosis L4-5 Disc Herniation Post-Operative Diagnosis L4-5 Disc Herniation Procedure(s) Performed L4-L5 Discectomy Surgeon Dr. Brooks Thapa Kerfer Machine Operator Surgeon(s) Jhoan Vasquez PA-C Estimated Blood Loss 40ml Findings massive disc herniation L4-5 Specimens none per surgeon Dr. Brooks Thapa Complication(s) None Disposition Recovery Room / PACU
[2016-09-28] MEDS: FENTANYL CITRATE INJ 50 MCG/1 ML 2 ML VIAL IV PRN ×4 (11:55→12:10)
[2016-09-28] MEDS ORDERED: LORAZEPAM INJ 1 MG in SYRINGE 0.5 ML IV PRN (12:00)
[2016-09-28] MEDS ORDERED: METOCLOPRAMIDE HCL INJ 5 MG/ML 2 ML VIAL IV PRN (12:00)
[2016-09-28] MEDS ORDERED: ACETAMINOPHEN 325 MG TAB PO PRN ×2 (12:00)
[2016-09-28] MEDS ORDERED: ONDANSETRON INJ 2 MG/ML 2 ML VIAL IV PRN (12:00)
[2016-09-28] MEDS ORDERED: LORAZEPAM 1 MG TAB PO PRN (12:00)
[2016-09-28] MEDS ORDERED: MAGNESIUM HYDROXIDE SUSP 30 ML UDC PO PRN (12:00)
[2016-09-28] MEDS ORDERED: PROMETHAZINE HCL INJ 12.5 MG in SODIUM CHLORIDE 0.9% 50ML 50 ML IV PRN (12:00)
[2016-09-28] MEDS ORDERED: OXYCODONE/ACETAMINOPHEN 5-325 TAB PO PRN (12:00)
[2016-09-28] MEDS: HYDROmorphone INJ 1 MG/ML SYR IV PRN ×6 (12:15→22:49)
--- NOTE | 2016-09-28 12:16 | OPERATIVE REPORT ---
DATE OF OPERATION: 09/28/2016 PREOPERATIVE DIAGNOSIS: Massive disk herniation L4-L5 lumbar spine. POSTOPERATIVE DIAGNOSIS: Same. PROCEDURE: Includes laminectomy, discectomy L4-L5, foraminotomy, partial facetectomy. SURGEON: Dr. Thapa. PHOTONIC LABORATORY TECHNICIAN: Jhoan VAUGHN PA-C. COMPLICATIONS: Zero. BLOOD LOSS: 40 mL. ANESTHETIC: General. DESCRIPTION OF PROCEDURE: The patient was taken to the operating room, a general intubated anesthetic provided to the patient. Antibiotics provided. He was placed prone, first shaved, scrubbed, prepped and draped sterile. We used C-arm guidance. We came right down the L4-L5 interspace. Skin incision, fascial incision, easily dissected the soft tissue to the interlaminar area at L4-L5. We took down the upgoing lamina, particularly on the left hand side, some on the right hand side as well. We did a foraminotomy, partial facetectomy, we did not stabilize the spine. We then were able to retract the dura and nerve root over a medial direction. I could see a disk herniation, we relatively piecemeal it out. We used the 15 scalpel blade, 2-3 different types pituitary rongeurs. We completed the foraminotomy above and below. I looked with our nerve hook above and below any free fragments. We also decompressed the right hand side. We irrigated and closed in layered fashion over vancomycin powder with a Hemovac drain with 1 Vicryl suture, 2-0, 3-0 nylon. Sterile dressing applied. The patient returned to supine and to PACU stable. No apparent complications. I was very pleased with the decompression. Postsurgery I felt we had all the disc material removed. Sponge and needle count correct at the close of the procedure. I attest to the content of the Intraoperative Record and any orders documented therein. Any exceptio ns are noted below.
--- NOTE | 2016-09-28 12:29 | Anesthesiology Progress Note ---
Anesthesia Post Op Note Date & Time Sep 28, 2016 at 12:28 Vital Signs Pain Intensity: 8.0 Vital Signs Past 12 Hours Date Time Temp Pulse Resp B/P Pulse Ox O2 Delivery O2 Flow Rate FiO2 09/28/16 12:25 88 16 135/80 100 Nasal Cannula 4 09/28/16 12:15 92 16 127/86 100 Mask 10 09/28/16 12:05 74 16 141/77 100 Mask 10 09/28/16 11:55 82 18 129/91 100 Mask 10 09/28/16 11:52 36.6 82 18 148/88 100 Mask 10 09/28/16 08:10 37 73 18 156/89 97 Room Air Notes Mental Status: alert / awake / arousable, participated in evaluation Pt Amnestic to Procedure: Yes Nausea / Vomiting: adequately controlled Pain: adequately controlled Airway Patency, RR, SpO2: stable & adequate BP & HR: stable & adequate Hydration State: stable & adequate Anesthetic Complications: no major complications apparent
[2016-09-28] MEDS ORDERED: IV FLUIDS COMPLETED PRN (12:30)
[2016-09-28] MEDS ORDERED: HYDROmorphone INJ 1 MG/ML SYR ONE (12:32)
--- NOTE | 2016-09-28 13:19 | DIAGNOSTIC IMAGING REPORT ---
LUMBAR SPINE, INTRAOPERATIVE FLUOROSCOPY HISTORY: L4-5 discectomy. FLUOROSCOPY TIME: 1 seconds. FINDINGS: Intraoperative fluoroscopy was provided for the lumbar spine. A single fluoroscopic spot image of the lower lumbar spine. There is a needle posterior to the L4-L5 disc space level. IMPRESSION: Fluoroscopy provided for a L4-5 discectomy. Electronically signed by: Bolivar Eli M.D. 09/28/2016 1:17 PM Dictated Date/Time: 09/28/2016 1:17 PM
[2016-09-28] MEDS ORDERED: KETOROLAC TROMETHAMINE 30 MG/ML VIAL ONE (13:24)
[2016-09-28] MEDS: SODIUM CHLORIDE 0.9% 1000ML 1,000 ML IV SCH (14:48)
[2016-09-28] MEDS: OXYCODONE/ACETAMINOPHEN 5-325 TAB PO PRN ×2 (14:48→19:27)
[2016-09-28] MEDS: DEXAMETHASONE INJ 10 MG in SYRINGE 0 ML IV SCH (16:15)
[2016-09-28] MEDS: CEFAZOLIN IV 2,000 MG in DEXTROSE 5% 50ML 50 ML IV SCH (18:21)
[2016-09-28] MEDS: KETOROLAC TROMETHAMINE 30 MG/ML VIAL IV. SCH (20:24)
[2016-09-29] MEDS: SODIUM CHLORIDE 0.9% 1000ML 1,000 ML IV SCH (00:16)
[2016-09-29] MEDS: DEXAMETHASONE INJ 10 MG in SYRINGE 0 ML IV SCH ×2 (00:16→08:10)
[2016-09-29] MEDS: OXYCODONE/ACETAMINOPHEN 5-325 TAB PO PRN ×2 (00:17→08:12)
[2016-09-29] MEDS: CEFAZOLIN IV 2,000 MG in DEXTROSE 5% 50ML 50 ML IV SCH ×2 (02:27→09:44)
[2016-09-29] MEDS: KETOROLAC TROMETHAMINE 30 MG/ML VIAL IV. SCH ×2 (02:27→08:10)
[2016-09-29] MEDS: HYDROmorphone INJ 2 MG/ML SYR/VIAL IV PRN ×2 (02:35→06:36)
[2016-09-29 03:44] VITALS: BP 145/79; PULSE 61; TEMP 37.2; O2SAT 99
[2016-09-29] MEDS ORDERED: NURSING DECISION MEDICATION ORDER SCH (05:45)
[2016-09-29] MEDS ORDERED: BISACODYL 10 MG SUPP PR PRN (06:00)
[2016-09-29] MEDS ORDERED: BISACODYL 5 MG TABEC PO PRN (06:00)
[2016-09-29 07:00] VITALS: BP 137/82; PULSE 63; TEMP 36.7; O2SAT 98
--- NOTE | 2016-09-29 07:28 | Anesthesiology Progress Note ---
Anesthesia Post Op Note Date & Time Sep 29, 2016 at 07:27 Vital Signs Vital Signs Past 12 Hours Date Time Temp Pulse Resp B/P Pulse Ox O2 Delivery O2 Flow Rate FiO2 09/29/16 03:44 37.2 61 18 145/79 99 Room Air 09/29/16 00:10 Room Air 09/28/16 23:15 37.1 74 18 139/78 98 Room Air 09/28/16 20:53 37.1 69 16 133/81 98 Room Air Notes Mental Status: alert / awake / arousable, participated in evaluation Pt Amnestic to Procedure: Yes Nausea / Vomiting: adequately controlled Pain: adequately controlled Airway Patency, RR, SpO2: stable & adequate BP & HR: stable & adequate Hydration State: stable & adequate Anesthetic Complications: no major complications apparent
--- NOTE | 2016-09-29 08:55 | Discharge Instructions ---
Discharge Instructions Admission Reason for Admission: Disc Herniation Discharge Discharge Diagnosis / Problem: disc herniation Discharge Goals Goal(s): Improve function Activity Recommendations Activity Limitations: as noted below Lifting Limitations: gradually increase as tolerated Exercise/Sports Limitations: until after follow-up appointment May Resume Sexual Activity: after follow-up appointment Shower/Bathe: keep incision dry Driving or Machine Use: Careful with bending , stoopin , lifting . Instructions / Follow-Up Instructions / Follow-Up careful. follow up already made Current Hospital Diet Patient's current hospital diet: Regular Diet Discharge Diet Recommended Diet: Regular Diet Procedures Procedures Performed: L4-L5 Discectomy Pending Studies Studies pending at discharge: no Medical Emergencies . Who to Call and When: Medical Emergencies: If at any time you feel your situation is an emergency, please call 911 immediately. . Non-Emergent Contact Non-Emergency issues call your: Surgeon Call Non-Emergent contact if: your pain is not controlled . "Provider Documentation" section prepared by Brooks Thapa. VTE Core Measure Inpt VTE Proph given/why not?: Treatment not indicated
[2016-09-29] MEDS ORDERED: POLYETHYLENE (MIRALAX) 17 GM PACK PO SCH (09:00)
--- NOTE | 2016-09-29 09:05 | DISCHARGE SUMMARY ---
DATE OF DISCHARGE: 09/29/2016. SUBJECTIVE: Minimal complaints of pain. Alert, oriented, no chest pain, shortness of breath. OBJECTIVE: Vital signs stable. Neurologically intact. Slight numbness. ASSESSMENT: Status post discectomy. He will be discharged home in improved stable condition. Dressing changed, drain pulled. He must keep the wound clean and dry for 2 weeks. He has prescriptions on his chart for pain and a follow-up appointment. Careful with bending, stooping, lifting, no driving. He just needs to be home resting and recovering and this has been emphasized.
[2016-09-29 09:41] VITALS: BP 144/87; PULSE 89; O2SAT 96
[2016-09-29 09:56] VITALS: BP 137/82; PULSE 63; TEMP 36.7; O2SAT 98
[2017-05-29] MEDS ORDERED: MIRT15TA2 PO (08:40)
[2017-05-29] MEDS ORDERED: HYDR-5688 PO (08:40)
[2017-05-29] MEDS ORDERED: HYDROXYZINE PO (08:40)
[2017-05-29] MEDS ORDERED: ZOLP10TA PO (08:40)
== END 2016-09-29 11:08 | disposition home or self-care (01) ==
LOC: ENRESERVDT → ENRESERVTM → C.ACU 07:46 → C.3E 14:42
PROVIDERS: ADMIT Orthopaedic Surgery Orthopaedic Surgery of the Spine; ATTEND Orthopaedic Surgery Orthopaedic Surgery of the Spine
DX: M51.26 Other intervertebral disc displacement, lumbar region (principal); F17.210 Nicotine dependence, cigarettes, uncomplicated

== ENCOUNTER → 2017-01-27 | Outpatient (CLI) | payer OTHER ==
[~2017-01-27] MED LIST changes: -ATROPINE SULFATE 0.1 MG/ML 5ML SYR IV PRN; -CEFAZOLIN 2000 MG/60 ML D5W 60 ML IV SCH; +DIPH25CA65 PO; +DOXY25TA7 PO; -EpHEDrine SULFATE INJ 50 MG/ML AMP IV PRN; +HYDR-5688 PO; +HYDROXYZINE PO; -LACTATED RINGER'S 1000ML 1,000 ML IV SCH; +MIRT15TA2 PO; -NSS 1000ML IV SCH; -ONDANSETRON INJ 2 MG/ML 2 ML VIAL IV PRN; +TRAZ50TA35 PO; +ZOLP10TA PO
[2017-01-27 10:56] LABS: BASO % 0.2 %; BASO ABS # 0.01 K/uL (0-0.2); COMPLETE YES; EOS % 4.6 %; IG% 0.3 %; LYMPH % 32.3 %; LYMPH ABS # 2.12 K/uL (1.2-3.4); MEAN CELL VOLUME 89.8 fL (80-100); MEAN CORPUSCULAR HEMOGLOBIN 29.8 pg (25-34); MEAN CORPUSCULAR HGB CONC 33.2 g/dl (32-36); MEAN PLATELET VOLUME 10.7 fL (7.4-10.4); MONO % 11.4 %; NEUT % 51.2 %; PLATELET COUNT 211 K/uL (130-400); WHITE BLOOD COUNT 6.57 K/uL (4.8-10.8)
[2017-01-27 11:15] LABS: ALT/SGPT 24 U/L (12-78); AST/SGOT 11 U/L (15-37); BLOOD UREA NITROGEN 14 mg/dl (7-18); BUN/CREATININE RATIO 13.1 (10-20); CALCIUM 8.5 mg/dl (8.5-10.1); CARBON DIOXIDE 29 mmol/L (21-32); CHLORIDE 109 mmol/L (98-107); GLUCOSE 102 mg/dl (70-99); POTASSIUM 3.7 mmol/L (3.5-5.1); SODIUM 144 mmol/L (136-145)
[2017-01-27 11:22] LABS: BENZODIAZEPINE, URINE NEG (NEG); COCAINE,URINE NEG (NEG); PHENCYCLIDINE, URINE NEG (NEG)
[2017-01-27 11:26] LABS: ALB/GLOB RATIO 1.3 (0.9-2); ALKALINE PHOSPHATASE 59 U/L (45-117)
== END | disposition home or self-care (01) ==
LOC: C.LABBC 09:25
PROVIDERS: ATTEND Nurse Practitioner Adult Health
DX: G47.00 Insomnia, unspecified (principal)

== ENCOUNTER 2017-01-29 18:54 | Emergency (ER) | payer OTHER ==
[~2017-01-29] VITALS: Ht 188 cm; Wt 93.3 kg
[~2017-01-29 18:54] MED LIST changes: -DIPH25CA65 PO; -DOXY25TA7 PO; -HYDR-5688 PO; -HYDROXYZINE PO; -MIRT15TA2 PO; -TRAZ50TA35 PO; -ZOLP10TA PO
[2017-01-29 19:05] VITALS: Ht 188 cm; Wt 93.3 kg
[2017-01-29] MEDS ORDERED: ATIVAN 1MG HOMEPACK PO ONE (19:30)
[2017-01-29] MEDS ORDERED: DOXY25TA7 PO (19:34)
[2017-01-29] MEDS ORDERED: DIPH25CA65 PO (19:34)
[2017-01-29] MEDS ORDERED: TRAZ50TA35 PO (19:34)
[2017-01-29 19:46] VITALS: BP 125/77; PULSE 86; TEMP 36.8; O2SAT 96
--- NOTE | 2017-01-30 00:50 | EMERGENCY ROOM VISIT NOTE ---
History Report prepared by Mindy: Fabian Ruiz Under the Supervision of: Dr. Richmond Buitrago M.D. First contact with patient: 19:10 Chief Complaint: OTHER COMPLAINT Stated Complaint: SEVERE ANXIETY, PANIC ATTACK, SLEEP DEPRIVATION History of Present Illness The patient is a 31 year old male who presents to the Emergency Room with complaints of worsening insomnia starting about 6 days ago. The patient was evaluated for his issues with sleep by a [facility] facility 3 days ago who prescribed Trazodone. Since then, his issues with sleep have worsened. He also reports worsening anxiety attacks and congestion. He has not slept for longer than 40 minutes in the past 6 days. He reports restless leg syndrome. He has tried Benadryl, NyQuil, Unison, Z-Quil, and melatonin without relief. He denies any specific events that have worsened his anxiety. He denies any suicidal or homicidal ideation. This is the second episode of insomnia in the past 30 days. He has a history of trouble sleeping and anxiety since he was 18 years old. He denies any history of sleep study. He does not have a therapist or a psychiatrist. He denies any alcohol use. He uses marijuana on a regular basis since the start of his anxiety issues. The patient denies fevers, or any other complaints. Source of History: patient Onset: about 6 days ago Position: other (global) Quality: other (insomnia) Timing: worsening Modifying Factors (Relieving): other (Benadryl, NyQuil, Unison, Z-Quil, and melatonin without relief) Associated Symptoms: + diaphoresis, No fevers Review of Systems See HPI for pertinent positives & negatives. A total of 10 systems reviewed and were otherwise negative. Past Medical & Surgical Medical Problems: (1) Allergy to cats (2) Back pain, lumbosacral (3) Lumbar disc herniation with radiculopathy Family History No pertinent family history Social History Smoking Status: Current Every Day Smoker Alcohol Use: occasionally Marital Status: in relationship Housing Status: lives with significant other Occupation Status: disabled Current/Historical Medications Scheduled PRN Diphenhydramine Hcl (Benadryl Allergy), 2 CAP PO HS PRN for Sleep Doxylamine Succinate (Sleep) (Unisom), 2 TABS PO HS PRN for Sleep Trazodone Hcl (Trazodone), 50-100 MG PO HS PRN for Sleep Allergies Coded Allergies: Cat Dander (Verified Allergy, Severe, SEVERE CONGESTION AND EYE SWELLING, 09/28/16) Physical Exam Vital Signs Date Time Temp Pulse Resp B/P Pulse Ox O2 Delivery O2 Flow Rate FiO2 01/29/17 19:46 36.8 86 18 125/77 96 01/29/17 19:05 36.8 86 18 125/77 96 Room Air Physical Exam Constitutional: Vital signs reviewed. Eyes: Pupils are equal round reactive to light. Conjunctiva are noninjected. ENT: Pharynx is clear without erythema or exudate. Mucous membranes are moist. Neck supple without meningeal signs. Respiratory: Clear to auscultation bilaterally. Breath sounds are equal bilaterally. Cardiovascular: Regular rate and rhythm. No rubs or gallops. GI: Soft, nondistended and nontender. Bowel sounds are present. Musculoskeletal: No peripheral edema. No lower extremity tenderness. Integumentary: No cyanosis. Neurological: The patient is awake and alert. No focal deficits. Psychiatric: Slightly anxious. Medical Decision & Procedures Medications Administered Medications (Trade) Dose Ordered Sig/Tiffanie Route Start Time Stop Time Status Last Admin Dose Admin Lorazepam (Ativan 1MG Home Pack) 1 homepack UD ONCE PO 01/29/17 19:30 01/29/17 19:37 DC 01/29/17 19:46 1 HOMEPACK ED Course 1909: The patient was evaluated in room A02. A complete history and physical exam was performed. 1930: Lorazepam 1 homepack PO. Upon reevaluation, the patient is resting comfortably. I discussed tonight's findings with him. He verbalized agreement of the treatment plan. He was discharged home. Medical Decision This is a 31-year-old male who presents with anxiety and insomnia. I did perform a limited focused review of portions of the patient's old chart on the electronic medical record. The patient had blood work on January 27 which showed elevated TSH but a normal free T4 otherwise his labs are unremarkable. I did evaluate the patient as noted above. The patient has a long-standing history of anxiety since he was 18 years old. He has had insomnia for similar amount of time which has worsened over the past 6 days. He does state that he uses marijuana chronically for his anxiety and had a medical marijuana card when he was in [place]. He has never had a sleep study. He does not have a therapist. I did recommend that he talk to his doctor about getting a sleep study and seeing a therapist for his anxiety. He may need to be placed on antidepressants for his anxiety as well. In the meantime I did give him a home pack of Ativan 1 mg to help him sleep for the next several days. I did have a long discussion with him regarding benzodiazepines. I did explain to him that this is a very temporary measure and that he should not rely on benzodiazepines for his insomnia. He does state that he had a prior history of using Klonopin. The patient was advised to call his doctor's office tomorrow. He was discharged in good condition. [place] Drug Monitoring Program Search Results: patient reviewed within database Drug Monitoring Findings: Patient received Hydrocodone in October from Dr. Thapa. Impression Primary Impression: Insomnia Additional Impression: Anxiety Scribe Attestation The scribe's documentation has been prepared under my direct and personally reviewed by me in its entirety. I confirm that the note above accurately reflects all work, treatment, procedures, and medical decision making performed by me. Departure Information Dispostion Home / Self-Care Referrals No Doctor, Assigned (PCP) Forms HOME CARE DOCUMENTATION FORM, IMPORTANT VISIT INFORMATION Patient Instructions Anxiety Disorder, ED Insomnia, Lorazepam Oral tablet, My [facility] Additional Instructions You have been examined and treated today on an emergency basis only. This is not a substitute for, or an effort to provide, complete comprehensive medical care. It is impossible to recognize and treat all injuries or illnesses in a single emergency department visit. It is therefore important that you follow up closely with your physician and a counselor. Call as soon as possible for an appointment. Return for worsening symptoms or if you develop thoughts of hurting yourself or others or any other concerning symptoms. Problem Qualifiers Primary Impression: Insomnia Insomnia type: unspecified Qualified Codes: G47.00 - Insomnia, unspecified
[2017-05-29] MEDS ORDERED: MIRT15TA2 PO (08:40)
[2017-05-29] MEDS ORDERED: HYDROXYZINE PO (08:40)
[2017-05-29] MEDS ORDERED: ZOLP10TA PO (08:40)
[2017-05-29] MEDS ORDERED: HYDR-5688 PO (08:40)
== END 2017-01-29 19:47 | disposition home or self-care (01) ==
LOC: C.EDB 18:56 → C.EDA 19:47
DX: G47.00 Insomnia, unspecified (principal); F41.9 Anxiety disorder, unspecified; M51.16 Intervertebral disc disorders with radiculopathy, lumbar region; F17.200 Nicotine dependence, unspecified, uncomplicated; Z91.09 Other allergy status, other than to drugs and biological substances

== ENCOUNTER → 2017-04-23 | Outpatient (CLI) | payer OTHER ==
[~2017-04-23] MED LIST changes: -ACET-1311 PO; +DIPH25CA65 PO; +DOXY25TA7 PO; +HYDR-5688 PO; -HYDR2TAB48 PO; +HYDROXYZINE PO; +MIRT15TA2 PO; +TRAZ50TA35 PO; +ZOLP10TA PO
--- NOTE | 2017-04-23 13:08 | DIAGNOSTIC IMAGING REPORT ---
LUMBAR SPINE W/O CONTRAST HISTORY: Pain. Radiculopathy. DISC HERNIATION TECHNIQUE: Multiplanar multisequence MRI of the lumbar spine was performed without the use of contrast. COMPARISON: 09/21/2016 FINDINGS: For the purpose of the report the L5-S1 disc space will be located on axial image 27 of 30. Signal characteristics the vertebral bodies appear unremarkable. Mild reactive bone marrow edema of the inferior endplate of L4 and superior endplate of L5. Schmorl's node is present centrally at L5. These findings are similar compared to the prior exam. Posterior disc herniation at L4-L5 base of the sagittal images is diminished. L1-L2: No significant central canal or neural foraminal narrowing. L2-L3: No significant central canal or neural foraminal narrowing. L3-L4: No significant central canal or neural foraminal narrowing. L4-L5: Left central disc herniation improved compared to the prior exam. Impact upon the thecal sac is considerably diminished. Moderate left central anterior impact remains. There is moderate residual narrowing left neural foramina also improved from the prior exam. Right neuroforamina remains patent. L5-S1: Broad-based bulging disc considered mild. This is improved from the prior exam. Impact upon the thecal sac is minimal. Neuroforamina are patent bilaterally. IMPRESSION: 1. Improved exam compared to the prior study. 2. Considerable decrease in volume of a large previous described disc herniation L4-L5. 3. Moderate left central residual with moderate narrowing left neuroforamina, also improved. 4. Mild central bulging disc L5-S1 also improved from the prior study. The above report was generated using voice recognition software. It may contain grammatical, syntax or spelling errors. Electronically signed by: Torito Maddox M.D. 04/23/2017 1:07 PM Dictated Date/Time: 04/23/2017 12:54 PM
== END | disposition home or self-care (01) ==
LOC: C.MRI 11:44
PROVIDERS: ATTEND Orthopaedic Surgery Orthopaedic Surgery of the Spine
DX: M51.26 Other intervertebral disc displacement, lumbar region (principal)

== ENCOUNTER 2017-05-13 13:17 | Emergency (ER) | payer OTHER ==
[~2017-05-13] VITALS: Ht 190.5 cm; Wt 89.8 kg
[~2017-05-13 13:17] MED LIST changes: -HYDR-5688 PO; -HYDROXYZINE PO; -MIRT15TA2 PO; -ZOLP10TA PO
[2017-05-13 13:39] VITALS: BP 122/83; PULSE 74; TEMP 36.7; O2SAT 98; Ht 190.5 cm; Wt 89.8 kg
[2017-05-13] MEDS ORDERED: KETOROLAC TROMETHAMINE 60 MG/2 ML VIAL IM STA (14:26)
[2017-05-13] MEDS ORDERED: DIAZEPAM 5MG TAB PO ONE (14:30)
--- NOTE | 2017-05-13 15:00 | EMERGENCY ROOM VISIT NOTE ---
ED Visit Note First contact with patient: 13:52 CHIEF COMPLAINT: Low back pain HISTORY OF PRESENT ILLNESS: This 31-year-old male patient presents to the emergency department, ambulatory, via POV, complaining of pain in the low back which began several months ago. The patient reports a chronic history of low back pain, and states he did have a discectomy completed in September. The patient states he was recently seen by Dr. Thapa, the spine surgeon, and told that he needs a lumbar fusion. This appointment was at Sunday to review the MRI. The patient states he did not schedule surgery at that time, because he is moving and did not want to be laid up for the move. The patient states Dr. Thapa did not give him any pain medication, and he is in need of medication at this time. The patient states he believes he hurt his back yesterday, and when asked how he did it, he states "I don't know". The patient states he was lifting something heavy, and began feeling the discomfort afterwards. The patient states it also could've been from standing up off of the couch wrong. The patient states the pain is in his low back and occasionally radiates down into both of his legs. He does admit to some occasional weakness, but states his legs have never given out on him. The patient denies any numbness or tingling in his legs or low back. The patient states he took 800 mg of ibuprofen once prior to coming to the emergency Department without any relief of his pain. He has not taken any medication in addition to that. The patient has not tried any other therapies such as heat or ice for his discomfort either. The pain is constant and worse with movement. The patient notes the pain as sharp and a 9/10. The patient denies any loss of control of their bowel or bladder functions. No nausea or vomiting or abdominal pain. No chest pain or shortness of breath. The patient has had prior back injuries. No dysuria or increased urinary frequency. REVIEW OF SYSTEMS: A 10 system review of systems was performed with positives and pertinent negatives listed in the history of present illness. All other systems were reviewed and are negative. ALLERGIES: Dander MEDICATIONS: Ambien, hydroxyzine PMH: Insomnia SOCIAL HISTORY: The patient lives locally with family. He denies alcohol use. The patient admits to smoking one pack of cigarettes every 3-4 days. The patient also admits to regularly smoking marijuana. PHYSICAL EXAM: VITALS: Vitals are noted on the nurse's note and reviewed by myself. Vital signs stable. GENERAL: This is a 31-year-old male, in no acute distress, nondiaphoretic, well- developed well-nourished. SKIN: The skin was without rashes, erythema, edema, or bruising. Capillary refill less than 2 seconds. NECK: Supple without nuchal rigidity. No cervical spine tenderness. No paraspinous muscle tenderness. HEART: Regular rate and rhythm without murmurs gallops or rubs. LUNGS: Clear to auscultation bilaterally without wheezes, rales or rhonchi. ABDOMEN: Positive bowel sounds x 4. Normal tympanic percussion. Soft, nontender, without masses or organomegaly. Almazan sign negative. MUSCULOSKELETAL: No muscle atrophy, erythema, or edema noted of the back. There is mild tenderness over the lumbar spinous processes. There is mild tenderness over the paraspinous muscles bilaterally. There are muscle spasms present. There is no tenderness over the thoracic spine or paraspinous muscles. The patient is slow to move around with maximum tenderness with sitting from a lying position. Negative straight leg raise test. NEURO: Patient was alert and oriented to person place and time. Normal sensation to light and sharp touch. Deep tendon reflexes 2+ in the lower extremities. Dorsalis pedis pulse 2+ bilaterally. Strength 5/5 and equal in the bilateral lower extremities. EMERGENCY DEPARTMENT COURSE: And discussed the proper treatment for the patient including scheduled anti-inflammatories such as NSAIDs or possibly prednisone and muscle relaxers. The patient states while I was in the room that he is in agreement with this plan. I was approached by the RN to question what happened with the patient, as he was not in the room. Apparently, the patient told the [employer] that he does not want the muscle relaxers and anti-inflammatories we were going to give him in the emergency department, because "they do not work for me". The patient did not request to discuss this with me, and did not mention anything to the nurses or anybody else. The patient left without discharge instructions. I had discussed with him prior to his departure that he should follow up with his spine surgeon or pain management provider regarding chronic pain medication. DIFFERENTIAL DIAGNOSES: Lumbar strain, muscle spasms, disc protrusion, fracture , contusion, malignancy, and others DIAGNOSIS: Lumbar strain with muscle spasms DISCHARGE INSTRUCTIONS AND TREATMENT: The patient left without discharge instructions or paperwork. Problem List Medical Problems: (1) Back pain, lumbosacral Status: Chronic Current/Historical Medications Unable to Obtain Active Prescriptions or Reported Meds Allergies Coded Allergies: Cat Dander (Verified Allergy, Severe, SEVERE CONGESTION AND EYE SWELLING, 09/28/16) Vital Signs Date Time Temp Pulse Resp B/P (MAP) Pulse Ox O2 Delivery O2 Flow Rate FiO2 05/13/17 13:39 36.7 74 20 122/83 98 Room Air Departure Information Impression Primary Impression: Strain of lumbar region Dispostion Home / Self-Care Condition GOOD Prescriptions Unable to Obtain Active Prescriptions or Reported Meds Referrals No Doctor, Assigned (PCP) Brooks Thapa, DO Patient Instructions [facility] Problem Qualifiers Primary Impression: Strain of lumbar region Encounter type: initial encounter Qualified Codes: S39.012A - Strain of muscle, fascia and tendon of lower back, initial encounter
[2017-05-29] MEDS ORDERED: ZOLP10TA PO (08:40)
[2017-05-29] MEDS ORDERED: HYDROXYZINE PO (08:40)
[2017-05-29] MEDS ORDERED: HYDR-5688 PO (08:40)
[2017-05-29] MEDS ORDERED: MIRT15TA2 PO (08:40)
== END 2017-05-13 14:48 | disposition home or self-care (01) ==
LOC: C.EDB 13:22 → C.EDD 14:48
DX: S39.012A Strain of muscle, fascia and tendon of lower back, initial encounter (principal); M62.830 Muscle spasm of back; G89.29 Other chronic pain; G47.00 Insomnia, unspecified; Z79.899 Other long term (current) drug therapy; X58.XXXA Exposure to other specified factors, initial encounter; F17.200 Nicotine dependence, unspecified, uncomplicated

== ENCOUNTER → 2017-06-07 | Outpatient (CLI) | payer OTHER ==
[~2017-06-07] MED LIST changes: -DIPH25CA65 PO; -DOXY25TA7 PO; +HYDR-5688 PO; +HYDROXYZINE PO; +MIRT15TA2 PO; -TRAZ50TA35 PO; +ZOLP10TA PO
--- NOTE | 2017-06-07 08:31 | DIAGNOSTIC IMAGING REPORT ---
CHEST 2 VIEWS ROUTINE HISTORY: 31 years-old Male PREOP preoperative exam without acute chest complaints. History of tobacco abuse. COMPARISON: Acute abdominal series radiographs 09/27/2016. TECHNIQUE: Frontal and lateral views of the chest FINDINGS: Cardiomediastinal and hilar silhouettes are within normal limits. There is no pneumothorax, pleural effusion, focal airspace consolidation or overt pulmonary edema. Lungs are mildly hyperinflated. Bones of the chest are grossly intact. No significant degenerative changes identified. IMPRESSION: No acute cardiopulmonary process. The above report was generated using voice recognition software. It may contain grammatical, syntax or spelling errors. Electronically signed by: Chip Lucas M.D. 06/07/2017 8:30 AM Dictated Date/Time: 06/07/2017 8:29 AM
[2017-06-07 10:49] LABS: BASO % 0.6 %; BASO ABS # 0.03 K/uL (0-0.2); COMPLETE YES; EOS % 2.6 %; HEMATOCRIT 42.6 % (42-52); IG% 0.2 %; LYMPH % 38.1 %; LYMPH ABS # 2.04 K/uL (1.2-3.4); MEAN CELL VOLUME 87.1 fL (80-100); MEAN CORPUSCULAR HEMOGLOBIN 29.7 pg (25-34); MEAN PLATELET VOLUME 10.5 fL (7.4-10.4); MONO % 8.8 %; NEUT % 49.7 %; PLATELET COUNT 228 K/uL (130-400); RED BLOOD COUNT 4.89 M/uL (4.7-6.1); WHITE BLOOD COUNT 5.36 K/uL (4.8-10.8)
== END | disposition home or self-care (01) ==
LOC: C.LABBC 08:05
PROVIDERS: ATTEND Orthopaedic Surgery Orthopaedic Surgery of the Spine
DX: Z01.811 Encounter for preprocedural respiratory examination (principal); Z01.812 Encounter for preprocedural laboratory examination

== ENCOUNTER 2017-06-14 06:40 | Inpatient (IN) | payer OTHER ==
[2017-05-29 08:25] VITALS: BMI 23.0
--- NOTE | 2017-06-13 16:00 | HISTORY & PHYSICAL EXAMINATION ---
DATE OF ADMISSION: 06/14/2017 CHIEF COMPLAINT: He presents with low back pain and lumbar radiculopathy. HISTORY OF PRESENT ILLNESS: Jeremy is a 31-year-old male. He has a degenerative disc and herniation at L4-5. He is moderately to medially symptomatic. He has intermittent good days but pretty much functions with pain in his low back which radiates down his legs. He does not describe any fever, sweats or chills. He has no bowel or bladder incontinence. He has tried assortment of treatments in the past. He has tried physical therapy. He has tried multiple medications as well, each have failed. PAST MEDICAL HISTORY: Depression. PAST SURGICAL HISTORY: None. ALLERGIES: TO IBUPROFEN. CURRENT MEDICATIONS: List just includes ibuprofen. FAMILY HISTORY: Positive for breast cancer. Negative for heart disease, stroke, diabetes, blood clots, DVTs, PEs. SOCIAL HISTORY: He is single, rarely drinks. Has a 5-pack-year history of cigarette smoking, little activity. REVIEW OF SYSTEMS: MUSCULOSKELETAL: Positive for stiffness, weakness, muscle pain. PHYSICAL EXAMINATION: CONSTITUTIONAL: Alert and oriented x3. He is 6'4, 225 pounds. CARDIOVASCULAR: Brisk capillary refill in distal extremities. RESPIRATORY: Equal and bilateral breath sounds. INTEGUMENTARY: No skin rashes, lesions or swelling. MUSCULOSKELETAL EXAMINATION: No signs of any infection. GENERAL: He has low back and left lower extremity difficulty. Slight numbness and tingling as well. He has pain with percussion over the lumbar spine at L4-L5 and L5-S1 segments. Pain with straight leg raises on the left side. We did review his MRI today. He does have lumbar disc herniation, recurrent L4-5 of the lumbar spine. He has some modic changes on the L4-L5 vertebral bodies as well. Disc height collapses at that level. ASSESSMENT AND DIAGNOSES: Discogenic back pain due to herniation of the lumbar spine at L4-L5. PLAN: At this time, we are going to preop him for surgery for PLIF procedure L4-L5. The disc is degenerated enough and herniated that it is causing some modic changes changes in the vertebral bodies. We will do a posterior approach lumbar interbody fusion at L4-L5. The surgery was discussed in detail including risks, the benefits, recovery time and expectations with the patient. He is in fully agreement. We did provide him with a back brace here in the office which he can use postoperatively. We expect him to be at [facility] for approximately 2 days postoperatively. We will follow him up in the office in approximately 10-14 days postop for evaluation and suture removal.
[~2017-06-14] VITALS: Ht 193 cm; Wt 87.0 kg
[2017-06-14] VITALS (8 sets, daily range): BP systolic 114–125; BP diastolic 66–77; PULSE 54–70; TEMP 36.5–36.9; O2SAT 96–100; Ht 193 cm; Wt 87.0 kg
[~2017-06-14 06:40] MED LIST changes: +CEFAZOLIN 2000 MG/60 ML D5W 60 ML IV SCH; +LACTATED RINGER'S 1000ML 1,000 ML IV SCH; +LACTATED RINGER'S 1000ML IV SCH
[2017-06-14] MEDS ORDERED: LIDOCAINE HCL 2% 2 ML VIAL (20MG/ML) ONE (07:45)
[2017-06-14] MEDS ORDERED: FENTANYL CITRATE INJ 50 MCG/1 ML 2 ML VIAL ONE (07:45)
[2017-06-14] MEDS ORDERED: ONDANSETRON INJ 2 MG/ML 2 ML VIAL ONE (07:45)
[2017-06-14] MEDS ORDERED: NEOSTIGMINE METHYLSULFATE 5 MG/5 ML SYR ONE (07:45)
[2017-06-14] MEDS ORDERED: LARYING-O-JET KIT (LTA) ONE ×2 (07:45)
[2017-06-14] MEDS ORDERED: ROCURONIUM BROMIDE 10 MG/ML 5 ML VIAL IV ONE ×2 (07:45→09:56)
[2017-06-14] MEDS ORDERED: PROPOFOL IV EMULSION 10 MG/ML 20 ML VIAL IV ONE (07:45)
[2017-06-14] MEDS ORDERED: GLYCOPYRROLATE INJ 0.2 MG/ML VIAL ONE (07:45)
[2017-06-14] MEDS ORDERED: DEXAMETHASONE SOD INJ 4 MG/ML VIAL ONE (07:45)
[2017-06-14] MEDS ORDERED: MIDAZOLAM HCL 1 MG/ML 2ML VIAL ONE (07:45)
[2017-06-14] MEDS ORDERED: THROMBIN FOR SOLN 20000 UNIT KIT ONE (08:02)
[2017-06-14] MEDS ORDERED: VANCOMYCIN HCL 1000MG/20ML VIAL ONE (08:02)
[2017-06-14] MEDS ORDERED: BACITRACIN 50000 UNIT VIAL ONE (08:02)
[2017-06-14] MEDS ORDERED: GELATIN SPONGE SZ 100 ONE (08:02)
[2017-06-14] MEDS ORDERED: BUPIVACAINE/EPINEPHRINE 0.5% MPF 1:200,000 30 ML VIAL ONE (08:03)
[2017-06-14] MEDS ORDERED: ONDANSETRON INJ 2 MG/ML 2 ML VIAL IV PRN ×2 (08:15→10:45)
[2017-06-14] MEDS ORDERED: EpHEDrine SULFATE INJ 50 MG/ML AMP IV PRN (08:15)
[2017-06-14] MEDS ORDERED: ATROPINE SULFATE 0.1 MG/ML 5ML SYR IV PRN (08:15)
[2017-06-14] MEDS ORDERED: HYDROmorphone INJ 2 MG/ML SYR/VIAL ONE (08:42)
[2017-06-14] MEDS ORDERED: SODIUM CHLORIDE 0.9% 1000ML 1,000 ML IV SCH (10:42)
[2017-06-14] MEDS ORDERED: LORAZEPAM 1 MG TAB PO PRN (10:45)
[2017-06-14] MEDS ORDERED: ZOLPIDEM TARTRATE 10 MG TAB PO PRN (10:45)
[2017-06-14] MEDS ORDERED: hydrOXYzine HCL 25 MG TAB PO PRN (10:45)
[2017-06-14] MEDS ORDERED: PROMETHAZINE HCL INJ 12.5 MG in SODIUM CHLORIDE 0.9% 50ML 50 ML IV PRN (10:45)
[2017-06-14] MEDS ORDERED: MIRTAZAPINE SOLTAB 15 MG PO PRN (10:45)
[2017-06-14] MEDS ORDERED: MAGNESIUM HYDROXIDE SUSP 30 ML UDC PO PRN (10:45)
[2017-06-14] MEDS ORDERED: ACETAMINOPHEN 325 MG TAB PO PRN (10:45)
[2017-06-14] MEDS ORDERED: LORAZEPAM INJ 1 MG in SYRINGE 0.5 ML IV PRN (10:45)
[2017-06-14] MEDS ORDERED: METOCLOPRAMIDE HCL INJ 5 MG/ML 2 ML VIAL IV PRN (10:45)
[2017-06-14] MEDS ORDERED: NALOXONE HCL 0.4 MG/1 ML VIAL/CARP IV PRN (10:45)
[2017-06-14] MEDS ORDERED: HYDROmorphone HCL 0.5MG/ML 50 ML CASSETTE ONE (10:54)
[2017-06-14] MEDS: FENTANYL CITRATE INJ 50 MCG/1 ML 2 ML VIAL IV PRN ×4 (10:58→11:16)
--- NOTE | 2017-06-14 11:06 | OPERATIVE REPORT ---
DATE OF OPERATION: 06/14/2017 PREOPERATIVE DIAGNOSIS: Degenerative herniated disc L4-L5 lumbar spine, instability lumbar spine L4-L5. PROCEDURE: 1. Decompression laminectomy and revision decompression L4-L5 lumbar spine. 2. Discectomy complete L4-L5 lumbar spine. 3. Pedicle screw instrumentation L4-L5 lumbar spine. 4. Posterior lumbar interbody fusion L4-L5 and lastly posterolateral fusion L4-L5 lumbar spine. SURGEON: Dr. Thapa. SAFETY PIN ASSEMBLING MACHINE OPERATOR: Jhoan Vasquez PA-C. COMPLICATIONS: Zero. BLOOD LOSS: 200. PROCEDURE: The patient was taken to the operating room and general intubated anesthetic provided to the patient, placed prone, prepped and draped sterile. We made a skin incision followed by fascial incision, dissecting out over the facet joints. The facet joints were huge, it was a moderately difficult dissection. ____ revision strategies on the dura and I think we adequately decompressed the associated nerve roots. We safely got pedicle screws into the spine at 5 and 4 on the right and 5 and 4 on the left. The 5th was superb. We then retracted the dura in a medial direction, did a formal discectomy on the right, formal discectomy on the left. We completely cleared out the interval. We packed this with autograft then put in an intervertebral implant typically called a cage into the vacated discectomy site. The cage measured 26 mm in length, 11 mm in height. We used them from the [employer]. We irrigated thoroughly with approximately 500 mL of fluid, we placed Gelfoam over the dura, bone graft out of the transverse processes, vancomycin powder placed as well. Closed fascia to fascia with 1 Vicryl suture, 2-0 in the subcuticular layer, 3-0 nylon on the skin. Sterile dressings applied. The patient returned to PACU improved stable. No complications. I attest to the content of the Intraoperative Record and any orders documented therein. Any exception s are noted below.
[2017-06-14 11:39] LABS: HEMATOCRIT 40.8 % (42-52)
[2017-06-14] MEDS: HYDROmorphone INJ 1 MG/ML SYR IV PRN ×4 (11:41→11:55)
--- NOTE | 2017-06-14 12:01 | DIAGNOSTIC IMAGING REPORT ---
INTRAOPERATIVE RADIOGRAPH CLINICAL HISTORY: L4-L5 spinal fusion. Fluoroscopy time: 7 seconds. FINDINGS: A single spot fluoroscopic view of the lumbar spine is presented. There has been discectomy at L4-L5 with laminectomy and posterior fusion at this level. Interpedicular screws are present at both levels. Orthopedic hardware appears intact. IMPRESSION: Intraoperative image from L4 -L5 spinal fusion as above. Electronically signed by: Dimitri Dalton M.D. 06/14/2017 12:00 PM Dictated Date/Time: 06/14/2017 11:59 AM
--- NOTE | 2017-06-14 12:13 | Anesthesiology Progress Note ---
Anesthesia Post Op Note Date & Time Jun 14, 2017 at 12:12 Vital Signs Vital Signs Past 12 Hours Date Time Temp Pulse Resp B/P (MAP) Pulse Ox O2 Delivery O2 Flow Rate FiO2 06/14/17 11:45 55 16 129/73 100 Nasal Cannula 4 Oxymask 06/14/17 11:35 58 17 136/77 100 Nasal Cannula 4 Oxymask 06/14/17 11:25 56 20 130/72 100 Nasal Cannula 4 Oxymask 06/14/17 11:15 58 21 151/79 100 Nasal Cannula 4 Oxymask 06/14/17 11:05 53 15 143/83 100 Oxymask 10 06/14/17 10:55 51 14 139/82 100 Oxymask 10 06/14/17 10:46 36.4 58 14 142/88 100 Oxymask 10 06/14/17 07:08 36.6 54 18 118/77 (91) 96 Room Air Notes Mental Status: alert / awake / arousable, participated in evaluation Pt Amnestic to Procedure: Yes Nausea / Vomiting: adequately controlled Pain: adequately controlled Airway Patency, RR, SpO2: stable & adequate BP & HR: stable & adequate Hydration State: stable & adequate Anesthetic Complications: no major complications apparent
[2017-06-14] MEDS: HYDROmorphone HCL 0.5MG/ML 50 ML CASSETTE IV PRN ×3 (12:33→23:01)
[2017-06-14] MEDS: SODIUM CHLORIDE 0.9% 1000ML 1,000 ML IV SCH ×2 (12:34→23:31)
[2017-06-14] MEDS: KETOROLAC TROMETHAMINE 30 MG/ML VIAL IV SCH ×3 (14:38→23:31)
[2017-06-14] MEDS: DEXAMETHASONE INJ 10 MG in SYRINGE 0 ML IV SCH ×2 (16:42→23:31)
[2017-06-14] MEDS: CEFAZOLIN IV 2,000 MG in DEXTROSE 5% 50ML 50 ML IV SCH ×2 (16:53→23:31)
[2017-06-14] MEDS ORDERED: NURSING VERBAL MED ORDER ONE (23:30)
[2017-06-15] MEDS: HYDROmorphone HCL 0.5MG/ML 50 ML CASSETTE IV PRN ×2 (02:22→07:00)
[2017-06-15 04:00] VITALS: BP 113/64; PULSE 63; TEMP 36.7; O2SAT 98
[2017-06-15] MEDS: KETOROLAC TROMETHAMINE 30 MG/ML VIAL IV SCH ×2 (05:53→12:09)
[2017-06-15] MEDS ORDERED: BISACODYL 10 MG SUPP PR PRN (06:00)
[2017-06-15] MEDS ORDERED: BISACODYL 5 MG TABEC PO PRN (06:00)
[2017-06-15 07:07] VITALS: BP 130/77; PULSE 61; TEMP 36.7; O2SAT 96
[2017-06-15] MEDS ORDERED: DC PCA SCH (08:00)
[2017-06-15] MEDS ORDERED: OXYCODONE/ACETAMINOPHEN 5-325 TAB PO PRN ×2 (08:00)
--- NOTE | 2017-06-15 08:32 | Anesthesiology Progress Note ---
Anesthesia Post Op Note Date & Time Jun 15, 2017 at 08:31 Vital Signs Vital Signs Past 12 Hours Date Time Temp Pulse Resp B/P (MAP) Pulse Ox O2 Delivery O2 Flow Rate FiO2 06/15/17 07:25 Room Air 06/15/17 07:07 36.7 61 16 130/77 (94) 96 Room Air 06/15/17 04:00 36.7 63 16 113/64 (80) 98 Room Air 06/14/17 23:35 Room Air 06/14/17 22:53 36.9 67 16 120/68 (85) 100 Room Air Notes Mental Status: alert / awake / arousable, participated in evaluation Pt Amnestic to Procedure: Yes Nausea / Vomiting: adequately controlled Pain: adequately controlled Airway Patency, RR, SpO2: stable & adequate BP & HR: stable & adequate Hydration State: stable & adequate Anesthetic Complications: no major complications apparent
[2017-06-15] MEDS: CEFAZOLIN IV 2,000 MG in DEXTROSE 5% 50ML 50 ML IV SCH (08:43)
[2017-06-15] MEDS: DEXAMETHASONE INJ 10 MG in SYRINGE 0 ML IV SCH ×3 (08:43→23:48)
[2017-06-15] MEDS ORDERED: NURSING VERBAL MED ORDER ONE (08:45)
[2017-06-15] MEDS ORDERED: OXYCODONE HCL IR 5 MG TAB (IMMEDIATE RELEASE) PO PRN (09:15)
--- NOTE | 2017-06-15 09:20 | PROGRESS NOTE ---
DATE: 06/15/2017 SUBJECTIVE: Significant complaints of pain but does feel a little more stable. Denies chest pain, shortness of breath. No confusion. OBJECTIVE: Afebrile. Standing, moves all 4 extremities. ASSESSMENT: Status post posterior lumbar interbody fusion procedure, fusion L4-L5. DISPOSITION: Includes up and ambulatory here today. Hopefully potentially discharge home tomorrow. Instructions, precautions provided.
[2017-06-15] MEDS: POLYETHYLENE (MIRALAX) 17 GM PACK PO SCH (09:53)
[2017-06-15] MEDS: OXYCODONE HCL IR 5 MG TAB (IMMEDIATE RELEASE) PO PRN ×3 (09:55→22:46)
[2017-06-15] MEDS: HYDROmorphone INJ 2 MG/ML SYR/VIAL IV PRN ×2 (10:57→21:17)
[2017-06-15 12:12] VITALS: BP 131/84; PULSE 72; TEMP 36.6; O2SAT 99
[2017-06-15] MEDS ORDERED: NURSING DECISION MEDICATION ORDER SCH (12:30)
[2017-06-15] MEDS ORDERED: ALUMINUM/MAGNESIUM SUSP 30 ML UDC PO PRN (13:30)
[2017-06-15 15:13] VITALS: BP 132/74; PULSE 54; TEMP 36.7; O2SAT 99
[2017-06-15] MEDS: HYDROmorphone INJ 1 MG/ML SYR IV PRN (17:31)
[2017-06-15 23:32] VITALS: BP 112/64; PULSE 66; TEMP 36.7; O2SAT 97
[2017-06-16] MEDS: HYDROmorphone INJ 2 MG/ML SYR/VIAL IV PRN ×2 (00:25→12:39)
[2017-06-16] MEDS: OXYCODONE HCL IR 5 MG TAB (IMMEDIATE RELEASE) PO PRN ×2 (02:53→07:47)
[2017-06-16] MEDS: HYDROmorphone INJ 1 MG/ML SYR IV PRN ×2 (05:42→09:37)
[2017-06-16 07:11] VITALS: BP 108/68; PULSE 64; TEMP 36.6; O2SAT 99
--- NOTE | 2017-06-16 08:50 | Discharge Instructions ---
Discharge Instructions Date of Service Jun 16, 2017. Admission Reason for Admission: Lumbar Disc Herniation Discharge Discharge Diagnosis / Problem: herniation and instability Discharge Goals Goal(s): Improve function Activity Recommendations Activity Limitations: as noted below Lifting Limitations: until after follow-up appointment Exercise/Sports Limitations: until after follow-up appointment May Resume Sexual Activity: after follow-up appointment Shower/Bathe: keep incision dry . Instructions / Follow-Up Instructions / Follow-Up MEDICATIONS: Please take your prescriptions as instructed at your pre-op appointment. SPECIAL CARE: The following information is intended to answer some of the common questions and concerns regarding your surgery. Each patient is an individual and receives individual counselling throughout the course of treatment, from diagnosis to surgery all the way through recovery. What follows is not an exhaustive list, but should be a useful guide to some of the common questions and concerns patients have regarding their surgeries. These are not provided to keep you from calling us; rather, they give you something accurate and concrete to reference as you recover from your procedure. If you need us, we are available to you. As always, if you are not sure about something, call us at [phone]. MEDICAL EMERGENCIES: For these conditions, call 911 or go to your local hospital-based Emergency Department - not [facility] or equivalent. * Paralysis * Severe chest pain or difficulty breathing * Swelling or redness of either leg Spine procedures can be rather complex and though complications are rare, they do occur. In such cases, effective advice regarding emergency situations cannot always be addressed over the telephone. You may be referred to the emergency department for more effective management of your problem. Activity Limitations: It is important to give your body time to heal, so please limit your activities : * In general, don't do anything that moves your spine too much. You should avoid contact sports, twisting or heavy lifting while you recover. * 5-10 pounds is all you should attempt to lift. * You should not plan on driving for approximately 3 weeks and you should avoid traveling more than 30-45 minutes at a time. Longer trips should be broken down with walking breaks spaced appropriately. * Physical therapy is not usually required. * Walking and good posture practices will help you recover and regain your function. * Avoid straining or sudden changes in position. * In general, the goal is to take it easy and recover. Don't cause any new problems. Just relax. Showers: * Do not take a bath, use a Jacuzzi or hot tub or otherwise submerge your incision. * It is usually safe to take a shower 4-5 days after your surgery. * Your incision does not require any special creams or ointments. * Simply clean it with soap and water, dry and re-dress with a clean bandage afterwards. Incision: * Keep incision clean, dry and protected until your first follow-up appointment. * Some amount of drainage and redness is normal. Any drainage should be fairly clear and not have a foul odor. * If you feel anything is wrong or you have excessive drainage, please call us. * Your stitches and gustavo will be removed 10-14 days after your surgery. At the time of your first post-op visit. * Neck surgeries are typically closed with a suture underneath the skin. The steri-strips over the incision should be maintained until we see you in the office. Bracing: * You may be provided with a back or neck brace to encourage good posture and prevent injury. It will remind you not to do too much as you heal and will alert others to the fact that you have had a surgery. * Back braces may be removed for showers and when you are resting at home. They must be worn when you are walking around for any period of time or for travel. * For neck surgery, you will likely be provided with two cervical collars. The soft collar ([place] or foam rubber) is worn most commonly throughout the day and while sleeping. The plastic collar (provided at the hospital) is for showering/bathing. * Except while eating, collars should remain in place. More specifically, bracing is provided for a purpose and should be worn. * Please obtain your brace or collars prior to your operation and bring them to the hospital with you on the day of surgery. * You should also bring your collars to your post-op appointment with Dr. Thapa. You should always take good care of your body and practice healthy habits, especially following surgery. You should: * Follow your doctor's treatment plan * Sit and stand properly with good posture (ears over shoulders, shoulders over hips) Don't slouch * Learn to lift correctly * Exercise regularly (low-impact aerobic exercise is especially good, but check with your doctor first) * Generally, be up and walking for 5-10 minutes at a time at least 3-4 times per day from the day you get home * Increasing walking to tolerance until you can walk for 20-30 minutes at a time * Attain and maintain a healthy body weight * Eat healthy foods ( a well-balanced, low-fat diet rich in fruits and vegetables) and get enough calcium * Avoid excessive use of alcohol When to call our office - If you notice any of the following: * Increased pain not relieve by pain medicine * Fevers greater then 100 degrees F, chills or flu symptoms * Increased redness around incision * Drainage from the incision that is not clear * Any foul smelling drainage * Swelling or fluid collection beneath the skin Miscellaneous: * In the hospital, you may be given a walker or cane for support while walking. These are temporary needs and are intended to prevent injuries due to falls. You may discontinue them when you feel strong and steady enough on your feet. * Sleep in a comfortable position. We find that many patients find a lounge chair or recliner with several pillows to be beneficial in the early post-operative period. * The support stockings should be used for 7-10 days and may be discontinued when you are back to walking more and conducting usual household activities. No problem is insignificant. We are here to help you and get you well. Contact us at [phone]. Definitions: Foraminotomy: If part of the disc or a bone spur (osteophyte) is pressing on a nerve as it leaves the vertebra (through an exit called the foramen), a foraminotomy may be done. Otomy means "to make an opening." A foraminotomy is making the opening of the foramen larger, so the nerve can exit without being compressed. Laminotomy: Similar to the foraminotomy, a laminotomy makes a larger opening, this time in your bony plate protecting your spinal canal and spinal cord (the lamina). The lamina may be pressing on your nerve, so the surgeon may make more room for the nerves using a laminotomy. Laminectomy: Sometimes, a laminotomy is not sufficient. The surgeon may need to remove all or part of the lamina. This procedure is called a laminectomy. This can often be done at many levels without any harmful effects. Current Hospital Diet Patient's current hospital diet: Regular Diet Discharge Diet Recommended Diet: Regular Diet Procedures Procedures Performed: L4-L5 Posterior Lumbar Interbody Fusion Pending Studies Studies pending at discharge: no Medical Emergencies . Who to Call and When: Medical Emergencies: If at any time you feel your situation is an emergency, please call 911 immediately. . Non-Emergent Contact Non-Emergency issues call your: Surgeon . "Provider Documentation" section prepared by Brooks Thapa. . VTE Core Measure Inpt VTE Proph given/why not?: Treatment not indicated
[2017-06-16] MEDS: POLYETHYLENE (MIRALAX) 17 GM PACK PO SCH (09:37)
--- NOTE | 2017-06-16 11:03 | DISCHARGE SUMMARY ---
SUBJECTIVE: Improved, stable, minimal complaints of pain. Alert, oriented. No chest pain, shortness of breath. No neurological deficit. OBJECTIVE: Vital signs completely stable. Wound protected. ASSESSMENT: Reconstructive spine surgery, doing well short run. No issues. DISPOSITION: Home later on today. Dressing changed and drain removal. He has prescription on his chart. He has a follow-up appointment. He has instructions and warnings given to him in the office and here at the hospital.
[2017-06-16 13:19] VITALS: BP 108/68; PULSE 64; TEMP 36.6; O2SAT 99
== END 2017-06-16 13:50 | disposition home or self-care (01) | DRG 460 ==
LOC: C.ACU 06:40 → C.3E 10:48 → ENRESERV 12:08
PROVIDERS: ADMIT Orthopaedic Surgery Orthopaedic Surgery of the Spine; ATTEND Orthopaedic Surgery Orthopaedic Surgery of the Spine
PROC: 0ST20ZZ Resection of Lumbar Vertebral Disc, Open Approach (ICD-10-PCS; principal; 2017-06-14 08:15)
PROC: 0SG00AJ Fusion of Lumbar Vertebral Joint with Interbody Fusion Device, Posterior Approach, Anterior Column, Open Approach (ICD-10-PCS; principal; 2017-06-14 08:15)
DX: M51.36 Other intervertebral disc degeneration, lumbar region (principal); M53.2X6 Spinal instabilities, lumbar region; F32.9 Major depressive disorder, single episode, unspecified